=== PATIENT | male | born 1965 | race African-American/Black ===

== ENCOUNTER 2018-10-08 13:26 | Inpatient (IN) ==
[2018-10-08] MEDS ORDERED: LASIX IV ONE (14:25)
--- NOTE | 2018-10-08 14:33 | PROVIDER DOCUMENTATION ---
HPI-Cardiac General - General Chief Complaint: Edema Stated Complaint: EDEMA Time Seen by Provider: 10/08/18 14:13 Allergies/Adverse Reactions: Patient Allergies Allergy/AdvReac Type Severity Reaction Status Date / Time No Known Allergies Allergy Verified 10/08/18 14:39 Home Medications: Home Medication List Medication Instructions Recorded Confirmed Last Taken Type Carvedilol [Coreg] 12.5 mg PO Q12HR tablet 03/12/18 Unknown Rx Folic Acid 1 mg PO DAILY tablet 03/12/18 Unknown Rx Furosemide [Lasix] 40 mg PO DAILY tablet 03/12/18 Unknown Rx Losartan [Cozaar] 50 mg PO BID 30 Days #60 tab 03/12/18 Unknown Rx Magnesium Oxide [Mag-Ox] 400 mg PO BID 30 Days #60 tab 03/12/18 Unknown Rx Rivaroxaban [Xarelto] 20 mg PO WSUPPER tablet 03/12/18 Unknown Rx Spironolactone [Aldactone] 25 mg PO BID 30 Days #30 tab 03/12/18 Unknown Rx Thiamine [Vitamin B-1] 100 mg PO DAILY 30 Days #30 tab 03/12/18 Unknown Rx - History of Present Illness-Cardiac Nature of Presenting Problem: reports LE edema and umbilical nodules and pain for 2-3 wks now. stated that he was on 7 different medicine due to financial strain he did not continue his medication. associated with sob on exertion and at rest. denied cp. admit to drinking 1 alcohol this morning to ease his pain. but normally he drinks 4packs a day. still smoking 1/2 ppd. Review of Systems - Adult - REVIEW OF SYSTEMS - ADULT Constitutional: reports: no symptoms reported Eyes: reports: no symptoms reported Ears, Nose, Mouth & Throat: reports: no symptoms reported Cardiovascular: reports: no symptoms reported Respiratory: reports: no symptoms reported Gastrointestinal: reports: no symptoms reported Genitourinary: reports: no symptoms reported Musculoskeletal: reports: no symptoms reported Integumentary: reports: no symptoms reported Neurological: reports: no symptoms reported Psychiatric: reports: no symptoms reported Endocrine: reports: no symptoms reported Hematologic/Lymphatic: reports: no symptoms reported Allergic/Immunologic: reports: no symptoms reported All Other Systems: Reviewed and Negative Past History - Adult - PAST MEDICAL HISTORY-ADULT Review of Records: reports: Old Records Reviewed, Nursing Assessment Review, Medications Reviewed, Social history reviewed & non-contributory. Major Childhood Illnesses: reports: denies history Cardiovascular: reports: denies history Respiratory: reports: denies history Gastrointestinal: reports: denies history Obstetrical/Gynecological: reports: denies history Genitourinary: reports: denies history Musculoskeletal: reports: denies history Neurological: reports: denies history Endocrine/Immune: reports: denies history Other Conditions: reports: denies history - IMMUNIZATION STATUS Childhood Immunizations: See Nurse Assessment Flu Vaccine: See Nurse Assessment - FAMILY HISTORY Family History: reviewed, not pertinent - SOCIAL HISTORY Smoking: less than 1 pack/day Provider spent 3-5 mins advising pt. on dangers of tobacco.: Discussed manners to quit use, and f/u contacts for add'l counseling. Substance Use: alcohol (this morning) Alcohol Use Frequency: every day Living Situation: family Physical Exam-General - CONSTITUTIONAL General Appearance: appears well, mild distress - EYES Eyes: PERRL/EOMI, scleral icterus - HEAD, EARS, NOSE, MOUTH & THROAT HENMT: normocephalic/atraumatic, normal ENT inspection - NECK Neck: non-tender, full range of motion - RESPIRATORY Respiratory: chest non-tender, lungs clear, normal breath sounds - CARDIOVASCULAR Cardiovascular: normal peripheral pulses, other (edematous BLE and abd umbilical swelling.) - GASTROINTESTINAL (ABDOMEN) Abdominal Exam: non tender (but at the umbilical area mild tender on palpation), distended - MUSCULOSKELETAL Extremity: normal range of motion, pedal edema, swelling (pitting 2+) - SKIN Integumentary: normal color, warm/dry - NEUROLOGIC Neurologic: grossly normal - PSYCHIATRIC Psych/Mental Status: oriented x 3 Progress - PLAN OF CARE/RESULTS Progress/Plan/Lab Results: Vital Signs - 8 hr 10/08/18 13:40 10/08/18 14:18 10/08/18 14:19 Temperature 97.7 F Pulse Rate 92 H Respiratory Rate 18 Blood Pressure 179/124 174/133 O2 Sat by Pulse Oximetry 100 96 98 10/08/18 14:30 10/08/18 15:00 10/08/18 15:30 Temperature Pulse Rate Respiratory Rate Blood Pressure O2 Sat by Pulse Oximetry 98 98 97 Laboratory Results - last 24 hr 10/08/18 10/08/18 10/08/18 14:36 14:36 14:36 WBC 5.96 RBC 4.10 L Hgb 12.5 L Hct 34.9 L MCV 85.1 MCH 30.5 MCHC 35.8 RDW Std Deviation 13.2 Plt Count 111 L MPV 12.1 H Immature Gran % (Auto) 0.3 Neut % (Auto) 65.9 Lymph % (Auto) 25.0 Cochran % (Auto) 6.5 Eos % (Auto) 1.5 Baso % (Auto) 0.8 Immature Gran # (Auto) 0.02 Neut # (Auto) 3.92 Lymph # (Auto) 1.49 Cochran # (Auto) 0.39 Eos # (Auto) 0.09 Baso # (Auto) 0.05 PT INR PTT (Actin FS) Sodium 140 Potassium 4.5 Chloride 106 Carbon Dioxide 21 L Anion Gap 13 BUN 22 Creatinine 1.3 H Estimated GFR/1.73 m2 > 60 BUN/Creatinine Ratio 17 Glucose 90 Calculated Osmolality 282 Calcium 8.8 Total Bilirubin 2.09 H AST 53 H ALT 19 Alkaline Phosphatase 63 Creatine Kinase 117 Troponin T Nru-H-Hgvgedwlutl Pept 4773 H Total Protein 7.1 Albumin 3.5 Globulin 3.6 Albumin/Globulin Ratio 1.0 10/08/18 10/08/18 14:36 14:36 WBC RBC Hgb Hct MCV MCH MCHC RDW Std Deviation Plt Count MPV Immature Gran % (Auto) Neut % (Auto) Lymph % (Auto) Cochran % (Auto) Eos % (Auto) Baso % (Auto) Immature Gran # (Auto) Neut # (Auto) Lymph # (Auto) Cochran # (Auto) Eos # (Auto) Baso # (Auto) PT 18.2 H INR 1.39 PTT (Actin FS) 30.0 Sodium Potassium Chloride Carbon Dioxide Anion Gap BUN Creatinine Estimated GFR/1.73 m2 BUN/Creatinine Ratio Glucose Calculated Osmolality Calcium Total Bilirubin AST ALT Alkaline Phosphatase Creatine Kinase Troponin T 0.023 Ilx-T-Motydxoiqes Pept Total Protein Albumin Globulin Albumin/Globulin Ratio Orders Category Date Time Status Cardiac Monitoring DIRECTED Care 10/08/18 14:23 Active Oxygen Therapy- ED Nursing DIRECTED Care 10/08/18 14:23 Active Saline Loc NOW Care 10/08/18 14:23 Active CHEST-2 VIEWS [RAD] Stat Exams 10/08/18 14:[address] ABD/PELVIS W/IV CONT ONLY [CT] Stat Exams 10/08/18 14:28 Completed AMMONIA [CHEM] Stat Lab 10/08/18 16:31 Uncollected CBC WITH ELECTRONIC DIFF [HEME] Stat Lab 10/08/18 14:36 Completed CK PROFILE [SP CHEM] Stat Lab 10/08/18 14:36 Completed CMP [COMPREHENSIVE METABOLIC PANEL] [CHEM] Stat Lab 10/08/18 14:36 Completed PRO B-NATRIURETIC PEPTIDE Stat Lab 10/08/18 14:36 Completed PROTIME WITH INR [COAG] Stat Lab 10/08/18 14:36 Completed PTT [COAG] Stat Lab 10/08/18 14:36 Completed TROPONIN T Stat Lab 10/08/18 14:36 Completed Furosemide [Lasix] Med 10/08/18 14:25 Discontinued 60 mg IV NOW ONE CP/SOB/Palp >45 yrs of Age Stat Oth 10/08/18 14:23 Ordered EKG [EKG] Stat Ther 10/08/18 14:23 Ordered [facility] [address] [place] [address], [address], [place] [address] Department of Imaging Patient: ALEX GONZALEZ ADM Date: 10/08/18 MR#: [id number] : 1965 ADM Status: REG ER Age/Sex: 53/M Room/Bed: Loc: ED Ordering Physician: Venus Ball MD Family Physician: None,PCP Reason for Procedure: abd umbilical hernia, nodules ____ Signed EXAM: CT ABD/PELVIS W/IV CONT ONLY INDICATION: abd umbilical hernia, nodules TECHNIQUE: This exam was performed using automated exposure control, adjustment of mA or kV according to patient size, and/or use of iterative reconstruction technique. COMPARISON: None. FINDINGS: There is marked cardiomegaly. There is a trace right pleural effusion. The lung bases are clear, otherwise. There is a nonenhancing nodular density in the left ventricle near the apex of the heart that is best appreciated on the venous phase measuring 3.1 x 1.9 cm axially. Given its lack of enhancement, and may represent a blood clot in the ventricle. There is reflux of contrast into the hepatic veins indicating right heart failure. The contour of the liver is vaguely nodular suggesting cirrhosis. There is moderate ascites throughout the abdomen. There is diffuse mesenteric as well as extensive body wall edema indicating anasarca. The spleen is borderline prominent measuring up to 13.1 cm in axial length. There are a couple of calcified stones in the gallbladder lumen. The gallbladder wall is somewhat thickened. However, this is assumed to be due to the surrounding ascites. The adrenal glands and pancreas are unremarkable. There is an extrarenal pelvis on the left that appears somewhat dilated as compared to the right. The left ureter also appears somewhat dilated. No obstructing lesion is identified so this may be chronic. The urinary bladder is largely nondistended. The urinary bladder wall is thickened. This is largely due to incomplete distention. There is no evidence of bowel obstruction or focal bowel wall thickening. The GI tract is grossly unremarkable, otherwise. There are degenerative changes at both hips and throughout the spine. The bony structures are intact. IMPRESSION: 1.Marked cardiomegaly. 2.Nonenhancing nodular focus in the left ventricle near the apex of the heart that is nonspecific but may represent a blood clot in the ventricle given its lack of enhancement. 3.Contrast reflux into the hepatic veins indicating right heart failure. 4.Cirrhosis. 5.Moderate volume ascites and extensive mesenteric and body wall anasarca. 6.Other incidental/nonacute findings detailed above. Electronically signed by Alvarez Romero 10/08/2018 4:17 PM 10/08/18 1617 Interpreting Physician: Alvarez Romero MD Dictated Date/Time: 10/08/18 1600 cc: Venus Ball MD; None,PCP Result Diagrams: 10/08/18 14:36 10/08/18 14:36 - CONSULTS/PCP/HOSPITALIST Notification #1 *Consult/PCP/Hospitalist*: Katelyn HERRERA Time Discussed: 16:32 (cirrhosis with ascites, chf exac, joe. ) Consult Disposition: Admit Departure - Departure Date of Disposition Decision: 10/08/18 Time of Disposition Decision: 16:32 DIAGNOSIS: Peripheral edema, HTN (hypertension), Cirrhosis of liver with ascites Disposition: ADMITTED INPATIENT 09 Certified Medical Emergency: Emergent Condition: Stable Referrals and Follow-Ups: None,PCP [Primary Care Provider] - - Critical Care Note This patient required my direct & personal management of CC.: No Attestation - Physician/ LUTHER Attestation The physician spent face to face time with patient:: Yes Advanced Practice Provider documentation review:: Supervising physician onsite and consulted in the evaluation and care of this patient. The physician did have a face to face encounter with the patient.
[2018-10-08 14:48] LABS: BASO# 0.05 X1000 (0.0-0.2); BASO% 0.8 % (0.0-0.8); EOS# 0.09 X1000 (0.0-0.7); EOS% 1.5 % (0.0-10.0); HEMATOCRIT 34.9 % (42.0-52.0); HEMOGLOBIN 12.5 g/dL (14.0-18.0); IMM GRAN# 0.02 X1000 (0.0-0.04); IMM GRAN% 0.3 % (0.0-0.5); LYMPH# 1.49 X1000 (1.2-3.4); MCH 30.5 PG (27-31); MCHC 35.8 g/dL (33-37); MCV 85.1 FL (81-99); MONO# 0.39 X1000 (0.11-0.59); MONO% 6.5 % (1.7-9.3); MPV 12.1 FL (7.4-10.4); NEUT# 3.92 X1000 (1.4-6.5); NEUT% 65.9 % (42.2-75.2); PLT 111 X1000 (130-400); RDW 13.2 % (11.5-14.5); WBC 5.96 X1000 (4.8-10.8)
[2018-10-08 14:57] LABS: INR 1.39; PROTIME 18.2 Seconds (11.0-16.0)
[2018-10-08 15:11] LABS: AGAP 13; ALBUMIN 3.5 g/dL (3.5-5.0); ALKALINE PHOSPHATASE 63 U/L (32-122); BUN 22 mg/dL (8-22); CALCIUM 8.8 mg/dL (8.8-10.2); CHLORIDE 106 mmol/L (98-107); CK PROFILE 117 U/L (24-204); COSMO 282; CREATININE 1.3 mg/dL (0.7-1.2); ESTIMATED GFR > 60; GLUCOSE 90 mg/dL (70-104); GOT 53 U/L (10-34); GPT 19 U/L (10-44); POTASSIUM 4.5 mmol/L (3.5-5.1); SODIUM 140 mmol/L (136-145); TCO2 21 mmol/L (25-35); TOTAL BILIRUBIN 2.09 mg/dL (0.20-1.00); TOTAL PROTEIN 7.1 g/dL (6.3-8.3)
--- NOTE | 2018-10-08 15:27 | Diag Imaging Result Doc PS360 ---
EXAM: CHEST-2 VIEWS - 10/08/2018 HISTORY: sob, chf TECHNIQUE: Chest two views COMPARISON: 03/10/2018 FINDINGS: There is stable cardiomegaly. There is stable tortuosity of the thoracic aorta. Inspiration is mildly shallow. The lungs appear clear. There is no vascular congestion, pleural effusion, or pneumothorax identified. IMPRESSION: Stable mild cardiomegaly. Mildly shallow inspiration. No other evidence of acute disease. Electronically signed by Rito Addison 10/08/2018 3:25 PM
--- NOTE | 2018-10-08 16:20 | Diag Imaging Result Doc PS360 ---
EXAM: CT ABD/PELVIS W/IV CONT ONLY INDICATION: abd umbilical hernia, nodules TECHNIQUE: This exam was performed using automated exposure control, adjustment of mA or kV according to patient size, and/or use of iterative reconstruction technique. COMPARISON: None. FINDINGS: There is marked cardiomegaly. There is a trace right pleural effusion. The lung bases are clear, otherwise. There is a nonenhancing nodular density in the left ventricle near the apex of the heart that is best appreciated on the venous phase measuring 3.1 x 1.9 cm axially. Given its lack of enhancement, and may represent a blood clot in the ventricle. There is reflux of contrast into the hepatic veins indicating right heart failure. The contour of the liver is vaguely nodular suggesting cirrhosis. There is moderate ascites throughout the abdomen. There is diffuse mesenteric as well as extensive body wall edema indicating anasarca. The spleen is borderline prominent measuring up to 13.1 cm in axial length. There are a couple of calcified stones in the gallbladder lumen. The gallbladder wall is somewhat thickened. However, this is assumed to be due to the surrounding ascites. The adrenal glands and pancreas are unremarkable. There is an extrarenal pelvis on the left that appears somewhat dilated as compared to the right. The left ureter also appears somewhat dilated. No obstructing lesion is identified so this may be chronic. The urinary bladder is largely nondistended. The urinary bladder wall is thickened. This is largely due to incomplete distention. There is no evidence of bowel obstruction or focal bowel wall thickening. The GI tract is grossly unremarkable, otherwise. There are degenerative changes at both hips and throughout the spine. The bony structures are intact. IMPRESSION: 1.Marked cardiomegaly. 2.Nonenhancing nodular focus in the left ventricle near the apex of the heart that is nonspecific but may represent a blood clot in the ventricle given its lack of enhancement. 3.Contrast reflux into the hepatic veins indicating right heart failure. 4.Cirrhosis. 5.Moderate volume ascites and extensive mesenteric and body wall anasarca. 6.Other incidental/nonacute findings detailed above. Electronically signed by Alvarez Romero 10/08/2018 4:17 PM
[2018-10-08] MEDS ORDERED: ATIVAN IV PRN (17:20)
[2018-10-08] MEDS ORDERED: ZOFRAN IV PRN (17:20)
[2018-10-08] MEDS ORDERED: APRESOLINE IV PRN (17:20)
--- NOTE | 2018-10-08 17:59 | HISTORY AND PHYSICAL ---
HISTORY OF PRESENT ILLNESS: Mr. Acharya has no primary care physician, but he is a 52-year-old. We had him here in February. He claimed to have no past medical history at that time when he came in. He was in [place], diagnosed with right lower extremity DVT and hypertension. Sent home on Xarelto, lisinopril, given cefdinir, unknown type, for infection for 10 days, which he completed. States that he has been taking medications as prescribed, however, last month around 10 pound weight gain. This is on previous admission. So we put him in the hospital. ProBNP was 10,000. He was worked up with Cardiology, found to have cirrhosis of the liver with ascites, bilateral lower extremity edema, hypercoagulopathy, his INR was 4, right lower extremity DVT, has been taking Xarelto, and cardiomegaly. He had a workup. His myocardial perfusion scan on the 10 of March, severe reduction in left ventricular ejection fraction, about 35%, so he was put on some medication for diuresis. Dr. Wu was following, Dr. Guerrero, had a dilated nonischemic cardiomyopathy. PAST MEDICAL HISTORY: 1. Diagnosed with right lower extremity DVT. 2. Hypertension. 3. Alcohol use, used to drink about a 6 pack a day or more. 4. Tobacco use and abuse. PAST SURGICAL HISTORY: He had a spider bite that I think would have been incised in the past. SOCIAL HISTORY: The patient lives in [place]. 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 He is single. Smoker. Smokes about a half pack a day. Six pack per day of beer, possibly more. FAMILY HISTORY: Mother with hypertension. Denies any diabetes. ALLERGIES: No known drug allergies. MEDICATIONS: The patient was on Xarelto and lisinopril. REVIEW OF SYSTEMS: His main problem is he just feels like he has got more swelling in his side and his legs, and he is more short of breath, more dyspnea. He is able to sleep in his bed. He is able to lie down, but feels more short of breath with any exertion. Denies chest pain. Denies fever or chills. His left shoulder has been giving him some discomfort. PHYSICAL EXAMINATION: VITAL SIGNS: Temperature 97.7 degrees, pulse 92, respirations 18, blood pressure 174/133. HEENT: Pupils are equal and round. LUNGS: Clear in all lung buckley. CVP is about 8 cm from left atrium. PULSES: Carotid, radial, and femoral pulses 2+ and symmetrical. ABDOMEN: Soft. CARDIOVASCULAR: Regular rhythm and rate without murmur or S3. Blood pressure 174/133, respiration rate 18, pulse rate 92, height 5 feet 10 inches. LABORATORY DATA: White count 5960, hematocrit 34, platelet count 111,000. Sodium 140, potassium 4.5, chloride 106, BUN 22, creatinine 1.3, glucose 90, AST 53, ALT 19, CK is 113. Albumin is 3.5. Pro-time is 18.2. Abdominal and pelvic CT: Marked cardiomegaly, nonenhancing nodular focus in the left ventricle in the apex of the heart that is nonspecific but may represent blood clot in the ventricle given the lack of enhancement, contrast reflux into the hepatic veins indicating right heart failure, cirrhosis, moderate volume ascites, extensive mesenteric and body wall anasarca. On exam, he has 2+ pitting edema from ankle to mid horowitz, and he appears to have some swelling anasarca up in the thighs and legs. ASSESSMENT AND PLAN: 1. Congestive heart failure. He has nonischemic global hypokinesis with cardiomyopathy. He has some right-sided failure as well with anasarca predominantly right-sided. His chest x-ray shows cardiomegaly, mildly shallow inspiration, but do not see a lot of pulmonary venous hypertension on that, but the abdominal pelvic CT suggests anasarca and swelling and signs of right heart failure. So we will try and diurese him. We need to get his afterload down. His blood pressure is high. He is supposed to be on Coreg 12.5 mg twice a day. We will give him Lasix IV. I am going to have him take 80 mg of Lasix IV and will do that q.12h for now. He will be on Cozaar 50 mg b.i.d. He will take Aldactone 25 mg b.i.d. We will try and time the Aldactone, so it is 30 minutes after his Lasix. He will take that p.o. I think we need to look at his left ventricle and right ventricle again with an echocardiogram. We need to check his thyroid and B12 and folate. We will follow his proBNP, check another one tomorrow. Follow his electrolytes with magnesium and his basic metabolic profile. 2. He has had a diagnosis of right lower extremity deep venous thrombosis. I think we are going to have to try follow-up and get noninvasive venous studies of both legs and just see where we are with that. 3. Hypertension. We need to get his afterload down. 4. Alcohol use. I am not sure where we stand on that, whether he is drinking again or not, but will encourage him to stop drinking. We will give him a nicotine patch if he requests one. I think for blood pressures right now, we will put him on his home medications and then give him 10 mg of Apresoline IV q.4 hours p.r.n. systolic blood pressure greater than 180 or diastolic greater than 100 q.4 hours, and we will check serial cardiac enzymes and look at his troponin and CPK. cc: Harjit Cuellar MD
[2018-10-08] MEDS: ALDACTONE PO SCH (20:23)
[2018-10-08] MEDS: COREG PO SCH (20:23)
[2018-10-08] MEDS: COZAAR PO SCH (20:23)
[2018-10-08] MEDS: MAG-OX PO SCH (20:23)
[2018-10-08] MEDS: ULTRAM PO PRN (20:49)
--- NOTE | 2018-10-08 23:39 | ED EKG INTERP ---
This chart was entered by Beverley Romero Scribe, acting as scribe for Venus Ball MD. EKG Interpretation - EKG Time of EKG reading by physician:: 15:37 EKG Read and Signed by:: Venus Ball EKG Interpretation (*Must complete 3 of following elements*): Abnormal Rate: 90 (Anterior infarct, age undetermined ) Rhythm: SR w/SA w/occ premature ventricular complexes Wenden: left MI Interval: normal Comments: Inferior infarct, age undetermined Attestation - Physician/ LUTHER Attestation The physician spent face to face time with patient:: Yes Advanced Practice Provider documentation review:: Supervising physician onsite and consulted in the evaluation and care of this patient. The physician did have a face to face encounter with the patient. This chart was documented by the indicated scribe, (Beverley Romero Scribe) and accurately reflects the services I performed and decisions made by me, Venus Ball MD, as attested by the provider's signature.
[2018-10-09 00:31] LABS: CK INDEX 0.9 (0.0-2.5); CK-MB 20.84 ng/mL (0.0-5.0)
--- NOTE | 2018-10-09 07:04 | Extremity Venous Study ---
PROCEDURE NAME: Venous U/S Bilateral Legs - 10/08/2018 REFERRING PHYSICIAN: Dr. Ball in the ED. FINDINGS: The patient complains of the lower extremity edema, has a history of a previous right popliteal DVT. Bilateral lower extremity venous images accomplished. The common femoral, superficial femoral, deep femoral, popliteal, posterior tibial, peroneal, and greater saphenous veins are imaged bilaterally. Doppler is used to evaluate the veins for spontaneity, phasicity, respiratory excursion, distal augmentation. All veins are compressible. No intraluminal clot is seen. Multiple lymph nodes are noted in both groins. INTERPRETATION: No evidence of deep or superficial venous thrombosis in the right lower extremity. The previously noted right popliteal venous thrombosis has resolved. There are lymph nodes noted in both groins bilaterally. cc: MD Mary Lawler CRNP
[2018-10-09 07:51] LABS: BASO# 0.04 X1000 (0.0-0.2); BASO% 0.8 % (0.0-0.8); EOS# 0.14 X1000 (0.0-0.7); HEMATOCRIT 33.6 % (42.0-52.0); HEMOGLOBIN 12.1 g/dL (14.0-18.0); LYMPH# 1.38 X1000 (1.2-3.4); LYMPH% 29.3 % (20.5-51.1); MCH 30.7 PG (27-31); MCV 85.3 FL (81-99); MONO# 0.28 X1000 (0.11-0.59); MONO% 5.9 % (1.7-9.3); MPV 12.5 FL (7.4-10.4); NEUT# 2.87 X1000 (1.4-6.5); PLT 100 X1000 (130-400); RBC 3.94 XMIL (4.7-6.1); RDW 13.4 % (11.5-14.5); WBC 4.71 X1000 (4.8-10.8)
[2018-10-09 08:03] LABS: INR 1.43; PROTIME 18.6 Seconds (11.0-16.0)
[2018-10-09 08:04] LABS: PTT 32.2 Seconds (22.3-41.8)
--- NOTE | 2018-10-09 08:07 | Diag Imaging Result Doc PS360 ---
EXAM: CHEST-2 VIEWS INDICATION: sob TECHNIQUE: 2 views COMPARISON: 10/08/2018 FINDINGS: The lungs are grossly clear. There is no discrete pleural fluid collection or pneumothorax. There is stable cardiomegaly. IMPRESSION: Stable cardiomegaly. No evidence of acute pathology by plain radiograph. Electronically signed by Alvarez Romero 10/09/2018 8:05 AM
[2018-10-09 08:20] LABS: AGAP 13; ALB/GLOB RATIO 0.9; ALBUMIN 3.2 g/dL (3.5-5.0); ALKALINE PHOSPHATASE 58 U/L (32-122); BUN 26 mg/dL (8-22); CALCIUM 8.6 mg/dL (8.8-10.2); CHLORIDE 106 mmol/L (98-107); COSMO 287; CREATININE 1.4 mg/dL (0.7-1.2); ESTIMATED GFR > 60; GLUCOSE 110 mg/dL (70-104); GOT 42 U/L (10-34); GPT 17 U/L (10-44); MAGNESIUM 1.5 mg/dL (1.5-2.7); POTASSIUM 4.1 mmol/L (3.5-5.1); SODIUM 141 mmol/L (136-145); TCO2 22 mmol/L (25-35); TOTAL BILIRUBIN 1.92 mg/dL (0.20-1.00); TOTAL PROTEIN 6.6 g/dL (6.3-8.3)
[2018-10-09] MEDS: MAG-OX PO SCH ×2 (08:54→21:31)
[2018-10-09] MEDS: FOLIC ACID PO SCH (08:54)
[2018-10-09] MEDS: VITAMIN B-1 PO SCH (08:55)
[2018-10-09] MEDS: COZAAR PO SCH ×2 (08:55→21:31)
[2018-10-09] MEDS: COREG PO SCH ×2 (08:55→21:31)
[2018-10-09] MEDS: LASIX IV SCH ×2 (08:55→21:31)
[2018-10-09] MEDS: ALDACTONE PO SCH ×2 (08:55→21:31)
--- NOTE | 2018-10-09 12:21 | PROGRESS NOTE ---
DATE: 10/09/2018 SUBJECTIVE: Mr. Acharya is feeling a little better. Feels like the tightness around his side is little better. No chest pain. His left shoulder has been a little uncomfortable because he cannot really get a comfortable position to sleep. OBJECTIVE: Vital signs: His temperature is 97.4 degrees, pulse 67, respirations 18, blood pressure 135/107. HEENT: Pupils are equal and round. Lungs: Clear in all lung buckley. Cardiovascular: Regular rhythm and rate without murmur or S3. Abdomen: Soft. Skin: Warm and dry. Extremities: He does have still trace edema, but it has gone down in his lower extremities and his thighs as well so, he appears to be diuresing pretty well. IMAGING: Chest x-ray: Stable cardiomegaly, no evidence of acute pathology. Extremity venous study: No evidence of deep or superficial venous thrombosis in the right lower extremity. Previous noted right popliteal venous thrombosis has resolved. There are lymph nodes in both groins which were nonspecific. LABORATORY DATA: White count 4710, hematocrit 33, platelet count 100,000. Sodium 141, potassium 4.1, chloride 106, BUN 26, creatinine 1.4, calcium 8.6. AST is 42, ALT is 17. Creatinine has bumped up just a little bit. His urine output appears to be 1500, close to 2000 mL. ASSESSMENT AND PLAN: 1. Congestive heart failure, global hypokinesis, cardiomyopathy. He has had some right-sided failure before, predominantly right-sided this time as well. Continue to diurese. Not exactly sure what his home medications are supposed to be but we thought they were Coreg and we are giving him Lasix 80 mg IV q.12, Coreg 12.5 mg q.12 hours, Cozaar 50 mg b.i.d., spironolactone 25 mg b.i.d. Electrolytes look okay. Continue diuresis. 2. Diagnosis of right lower extremity deep venous thrombosis. It looks like that has cleared. 3. Hypertension. Blood pressures seem to be doing better except the diastolic is still running high, so we will adjust medications accordingly. cc: Harjit Cuellar MD
[2018-10-09] MEDS: APRESOLINE PO SCH ×3 (12:58→21:31)
[2018-10-09] MEDS: XARELTO PO SCH (17:14)
[2018-10-09] MEDS: ULTRAM PO PRN (21:29)
--- NOTE | 2018-10-10 09:32 | ECHO REPORT ---
ORDER DATE: 10/08/2018 MEASUREMENTS: Left ventricular end-diastolic diameter 6.3, septal thickness 1.1, posterior wall thickness 1.1, aortic root 3.6, left atrium 6.0. SUMMARY: 1. Adequate quality study. 2. Intravenous echocontrast agent utilized to enhance endocardial definition. 3. Aortic valve is trileaflet and opens normally on 2-dimensional images. Peak gradient across the aortic valve is less than 10 mmHg. There is mild aortic regurgitation. Mitral, tricuspid, and pulmonic valves are without evidence of structural abnormality, with mild mitral regurgitation, severe tricuspid regurgitation, and [id number] pulmonic insufficiency. The estimated systolic PA pressure by Doppler is 25 mmHg. The aortic root is normal in size. 4. Moderate left ventricular enlargement with normal wall thickness demonstrated. The estimated left ventricular ejection fraction is approximately 20% in the setting of severe global hypokinesis. Echodensity of left ventricular apex noted, consistent with apical thrombus. The left atrium is severely enlarged. Right ventricle is moderately enlarged with mildly reduced right ventricular systolic function. Diastolic septal flattening noted, suggesting right ventricular volume overload. 5. No pericardial effusion. 6. Appearance of inferior vena cava suggests elevated central venous pressure. cc: MD Mary Zhang CRNP
[2018-10-10 11:07] LABS: HEPATITIS PROFILE ACUTE SEE COMMENTS
[2018-10-10] MEDS: MAG-OX PO SCH ×2 (11:26→21:26)
[2018-10-10] MEDS: COZAAR PO SCH ×2 (11:26→21:26)
[2018-10-10] MEDS: LASIX IV SCH ×2 (11:26→21:26)
[2018-10-10] MEDS: ALDACTONE PO SCH ×2 (11:26→21:26)
[2018-10-10] MEDS: FOLIC ACID PO SCH (11:27)
[2018-10-10] MEDS: APRESOLINE PO SCH ×3 (11:27→21:26)
[2018-10-10] MEDS: VITAMIN B-1 PO SCH (11:27)
[2018-10-10] MEDS: COREG PO SCH ×2 (11:27→21:26)
[2018-10-10] MEDS: XARELTO PO SCH (16:28)
--- NOTE | 2018-10-10 16:32 | PROGRESS NOTE ---
DATE: 10/10/2018 SUBJECTIVE: Mr. Acharya does feel like he is breathing a little better. Feels like swelling is going down. I have explained that he has biventricular failure, concerned that he has a blood clot in the ventricle. He is making some progress with diuresis. We are going to try and control his afterload. OBJECTIVE: Vital Signs: Temperature 97.6 degrees, pulse 66, respirations 18, blood pressure 111/86. HEENT: Pupils are equal and round. CVP is less than 8 cm. Lungs: Clear in all lung buckley. Cardiovascular: Regular rhythm and rate. Carotid, radial, femoral pulse 1+ and symmetrical. He has 1+ pitting edema ankle to mid horowitz and some edema in the upper thighs and his abdomen. ASSESSMENT AND PLAN: Biventricular systolic dysfunction, severe cardiomyopathy. I think we are making some progress with diuresis. Blood pressure has come down. I added Apresoline. Echo suggests he may have a mural thrombus. He is already on Xarelto 20 mg a day. MEDICATIONS: Coreg 12.5 mg twice a day, folic acid 1 mg a day, Lasix 80 mg IV q.12 h., Apresoline 10 mg q.4 h. p.r.n., hydralazine 50 mg 3 times a day, Ativan 1 to 2 mg IV q.4 h., Cozaar 50 mg b.i.d., magnesium oxide 400 mg b.i.d., Xarelto 20 mg a day, spironolactone 25 mg b.i.d., vitamin B1 100 mg daily, Ultram 50 mg q.6 hours. We will check his electrolytes and CBC again tomorrow. cc: Harjit Cuellar MD
[2018-10-10] MEDS: ULTRAM PO PRN (21:35)
--- NOTE | 2018-10-11 08:03 | EKG Report ---
Test Performed on : 10/09/2018 06:08:43 AM Test Reason : chest pain Blood Pressure : / mmHG Vent. Rate : 069 BPM Atrial Rate : 069 BPM P-R Int : 200 ms QRS Dur : 112 ms QT Int : 502 ms P-R-T Axes : 046 198 082 degrees QTc Int : 537 ms Normal sinus rhythm. Right bundle branch block Inferior infarct (cited on or before 03-MAR-2018) Anterolateral infarct (cited on or before 03-MAR-2018) Abnormal ECG When compared with ECG of 08-OCT-2018 15:37, (Unconfirmed) premature ventricular complexes. are no longer present Right bundle branch block is now present Confirmed by Emiliano LUIS, Babatunde ([id number]) on 10/11/2018 9:13:58 AM
[2018-10-11 08:25] LABS: CREATININE 1.8 mg/dL (0.7-1.2); MAGNESIUM 1.3 mg/dL (1.5-2.7); POTASSIUM 3.7 mmol/L (3.5-5.1)
--- NOTE | 2018-10-11 08:47 | Diag Imaging Result Doc PS360 ---
EXAM: CHEST-2 VIEWS HISTORY: chf TECHNIQUE: Chest two views COMPARISON: 10/09/2018 FINDINGS: Poor inspiratory effort. The heart is enlarged. No pulmonary edema. No pleural effusions. No pneumonia. IMPRESSION: Cardiomegaly, but no other evidence of congestive failure. Electronically signed by Cachorro Ríos 10/11/2018 8:45 AM
--- NOTE | 2018-10-11 08:52 | EKG Report ---
Test Performed on : 10/08/2018 3:37:48 PM Test Reason : sob Blood Pressure : / mmHG Vent. Rate : 090 BPM Atrial Rate : 090 BPM P-R Int : 180 ms QRS Dur : 100 ms QT Int : 392 ms P-R-T Axes : 042 -84 063 degrees QTc Int : 479 ms Sinus rhythm. with sinus arrhythmia. with occasional premature ventricular complexes. Left axis deviation Inferior infarct (cited on or before 03-MAR-2018) Anterior infarct (cited on or before 03-MAR-2018) Abnormal ECG When compared with ECG of 06-MAR-2018 06:17, premature ventricular complexes. are now present Questionable change in initial forces of Lateral leads Nonspecific T wave abnormality no longer evident in Inferior leads Nonspecific T wave abnormality no longer evident in Anterior leads Unconfirmed Result
[2018-10-11] MEDS: LASIX IV SCH ×2 (09:58→20:28)
[2018-10-11] MEDS: MAG-OX PO SCH ×2 (09:59→20:04)
[2018-10-11] MEDS: ULTRAM PO PRN (09:59)
[2018-10-11] MEDS: FOLIC ACID PO SCH (09:59)
[2018-10-11] MEDS: ALDACTONE PO SCH ×2 (09:59→20:04)
[2018-10-11] MEDS: COZAAR PO SCH ×2 (09:59→20:04)
[2018-10-11] MEDS: COREG PO SCH ×2 (09:59→20:04)
[2018-10-11] MEDS: VITAMIN B-1 PO SCH (09:59)
[2018-10-11] MEDS: APRESOLINE PO SCH ×3 (09:59→20:04)
--- NOTE | 2018-10-11 16:54 | PROGRESS NOTE ---
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 Feels like his breathing is a little better. Every day seems to be a little better. He says he is not where he needs to be yet, though. OBJECTIVE: Temperature 97.3 degrees, pulse 62, respirations 18, blood pressure 108/77. Pupils are equal and round. Lungs are clear in all lung buckley, anterior and posterior. Neck veins appear to be about 8 cm water pressure from angle of Guille. Abdomen: Soft. Positive bowel sounds. He has trace pitting edema from ankle to mid horowitz. Urinary output: A little over 2 L. DIAGNOSTIC STUDIES: Chest x-ray from this morning: Cardiomegaly with no other evidence of congestive heart failure. ASSESSMENT AND PLAN: Biventricular systolic dysfunction, severe cardiomyopathy, and questionable thrombus in the ventricle. He is already on Xarelto. Continue to diurese. I think his afterload is better controlled. Blood pressure is down. Seems to be diuresing pretty well. Cardiology is following. He had noninvasive venous studies which showed no evidence of superficial or deep venous thrombosis, and abdominal and pelvic CT just marked cardiomegaly. There is a focus in the left ventricle near the apex of the heart, which is nonspecific. He had an echocardiogram done on 10/08/2018: Moderate left ventricular enlargement, ejection fraction estimated about 20% with global hypokinesis. Echodensity of the left ventricle apex noted consistent with apical thrombus. The left atrium is severely enlarged. Right ventricle is moderately enlarged with mildly reduced right ventricular systolic function. There is diastolic septal flattening noted, suggestive of right ventricular volume overload, and he has predominantly has right-sided symptoms. Continue diuresis. Kidney function: Creatinine 1.8 which has gone up a little bit so I will cut down the Lasix to 40 mg IV q.12 h. He is already on spironolactone 25 mg twice a day and hydralazine 50 mg p.o. 3 times a day and Coreg 12.5 q.12 h. Continue the Xarelto. I suspect mural thrombus. cc: Harjit Cuellar MD
[2018-10-11] MEDS: XARELTO PO SCH (17:22)
[2018-10-12 07:09] LABS: HEMATOCRIT 34.2 % (42.0-52.0); HEMOGLOBIN 12.1 g/dL (14.0-18.0); MCH 30.9 PG (27-31); MCHC 35.4 g/dL (33-37); MCV 87.2 FL (81-99); MPV 12.1 FL (7.4-10.4); RBC 3.92 XMIL (4.7-6.1); RDW 13.4 % (11.5-14.5); WBC 4.76 X1000 (4.8-10.8)
[2018-10-12 07:53] LABS: CALCIUM 8.6 mg/dL (8.8-10.2); CREATININE 1.7 mg/dL (0.7-1.2); POTASSIUM 3.6 mmol/L (3.5-5.1)
--- NOTE | 2018-10-12 08:02 | Diag Imaging Result Doc PS360 ---
CHEST-PORTABLE - 10/12/2018 INDICATION: pulmonary edema COMPARISON: 10/11/2018 FINDINGS: Stable significant cardiomegaly. Pulmonary vascularity is normal. No infiltrates or edema. IMPRESSION: Cardiomegaly. Electronically signed by Zachery Fisher 10/12/2018 8:00 AM
[2018-10-12] MEDS: COREG PO SCH (08:31)
[2018-10-12] MEDS: FOLIC ACID PO SCH (08:31)
[2018-10-12] MEDS: VITAMIN B-1 PO SCH (08:31)
[2018-10-12] MEDS: ALDACTONE PO SCH (08:31)
[2018-10-12] MEDS: MAG-OX PO SCH (08:31)
[2018-10-12] MEDS: APRESOLINE PO SCH ×2 (08:31→16:23)
[2018-10-12] MEDS: COZAAR PO SCH (08:31)
[2018-10-12] MEDS: LASIX IV SCH (08:31)
[2018-10-12 15:23] VITALS: BP 121/89
[2018-10-12] MEDS: XARELTO PO SCH (16:24)
--- NOTE | 2018-10-14 19:27 | DISCHARGE SUMMARY ---
ADMISSION DATE: 10/08/2018 DISCHARGE DATE: 10/12/2018 FINAL DISCHARGE DIAGNOSES: 1. Acute on chronic systolic congestive heart failure exacerbation. 2. Severe cardiomyopathy. 3. Hypertension. 4. History of right popliteal venous thrombosis. 5. Apical thrombus 6. Liver cirrhosis IMAGING: CT of the abdomen and pelvis performed on 10/08/2018 that revealed marked cardiomegaly. Nonenhancing nodular focus in the left ventricle near the apex of the heart. Liver cirrhosis. Moderate volume ascites. HOSPITAL COURSE: Mr. Acharya is a 53-year-old male with a history of severe cardiomyopathy, chronic systolic CHF and chronic diastolic CHF, who presented to the ER with a chief complaint of lower extremity swelling and abdominal distention. The patient was noted to be in a CHF exacerbation and was started on IV diuretic therapy. The patient had an echocardiogram done that revealed an ejection fraction of 20% as well as apical thrombus. The patient responded well to diuretic therapy. The patient was maintained on his Xarelto for anticoagulation. The patient did not require supplemental oxygen, and his oxygen saturations stayed in the 99% to 100% range throughout the hospitalization. Also, the patient's peripheral edema improved with the diuretic therapy. The patient continued to improve clinically and was ultimately cleared for discharge. The patient was advised to follow up with Dr. Hamm upon discharge from the hospital within 1 week. DISCHARGE MEDICATIONS: 1. Lasix 60 mg p.o. daily. 2. Hydralazine 50 mg p.o. 3 times a day. 3. Coreg 12.5 mg oral every 12 hours. 4. Folic acid 1 mg p.o. daily. 5. Cozaar 50 mg p.o. twice a day. 6. Xarelto 20 mg p.o. daily. 7. Aldactone 25 mg oral twice a day. 8. Thiamin 100 mg p.o. daily. DISCHARGE DIET: Low-sodium, low-cholesterol diet. ACTIVITY: As tolerated. FOLLOWUP INSTRUCTIONS: The patient will need to follow up with Dr. Hamm within 1 week. cc: Radha Ellison MD MTDD
== END 2018-10-12 18:23 | disposition home or self-care (01) | DRG 292 ==
LOC: ED 13:26 → SUATTDRO 17:44 → 3N 17:44
PROVIDERS: ATTEND Internal Medicine
CPT/HCPCS: 71010; 71020; 71045; 71046; 74177; 80048; 80053; 80074; 82140; 82550; 82553; 83735; 83880; 84443; 84484; 85025; 85027; 85610; 85730; 93005; 93010; 93306; 93970; 94761; 96374; 99285; A9270; C8929; J1940; Q9957; Q9967

== ENCOUNTER 2018-11-15 14:46 | Inpatient (IN) ==
[2018-11-15] MEDS ORDERED: NITROGLYCERIN TOP ONE (15:17)
[2018-11-15] MEDS ORDERED: LASIX IV ONE (15:17)
--- NOTE | 2018-11-15 15:29 | Diag Imaging Result Doc PS360 ---
EXAM: CHEST-2 VIEWS 11/15/2018 HISTORY: fluid overload TECHNIQUE: PA and lateral chest COMMENT: There is cardiomegaly. The lungs are clear and essentially unchanged since 10/12/2018. IMPRESSION: Cardiomegaly. Electronically signed by Avi Orozco 11/15/2018 3:26 PM
[2018-11-15 15:58] LABS: BASO# 0.04 X1000 (0.0-0.2); BASO% 0.6 % (0.0-0.8); EOS# 0.09 X1000 (0.0-0.7); EOS% 1.4 % (0.0-10.0); HEMOGLOBIN 12.9 g/dL (14.0-18.0); LYMPH# 1.79 X1000 (1.2-3.4); LYMPH% 27.6 % (20.5-51.1); MCH 30.1 PG (27-31); MCHC 36.9 g/dL (33-37); MCV 81.8 FL (81-99); MONO# 0.26 X1000 (0.11-0.59); NEUT% 66.4 % (42.2-75.2); PLT 116 X1000 (130-400); RBC 4.28 XMIL (4.7-6.1); RDW 14.5 % (11.5-14.5); WBC 6.48 X1000 (4.8-10.8)
[2018-11-15 16:13] LABS: AGAP 8; ALBUMIN 3.6 g/dL (3.5-5.0); ALKALINE PHOSPHATASE 71 U/L (32-122); BUN 13 mg/dL (8-22); CALCIUM 8.9 mg/dL (8.8-10.2); CHLORIDE 104 mmol/L (98-107); COSMO 276; CREATININE 1.1 mg/dL (0.7-1.2); ESTIMATED GFR > 60; GLUCOSE 67 mg/dL (70-104); GOT 41 U/L (10-34); GPT 14 U/L (10-44); POTASSIUM 4.1 mmol/L (3.5-5.1); SODIUM 139 mmol/L (136-145); TCO2 27 mmol/L (25-35); TOTAL BILIRUBIN 2.08 mg/dL (0.20-1.00); TOTAL PROTEIN 7.3 g/dL (6.3-8.3)
--- NOTE | 2018-11-15 16:56 | PROVIDER DOCUMENTATION ---
This chart was entered by Jennifer Whitfield Scribe, acting as scribe for Jigna Carpenter MD. HPI-General Adult - General Chief Complaint: Edema Stated Complaint: FLUID BUILD UP Time Seen by Provider: 11/15/18 15:00 Source: patient Allergies/Adverse Reactions: Patient Allergies Allergy/AdvReac Type Severity Reaction Status Date / Time No Known Allergies Allergy Verified 10/08/18 14:39 Home Medications: Home Medication List Medication Instructions Recorded Confirmed Last Taken Type Carvedilol [Coreg] 12.5 mg PO Q12HR tablet 03/12/18 Unknown Rx Folic Acid 1 mg PO DAILY tablet 03/12/18 Unknown Rx Losartan [Cozaar] 50 mg PO BID 30 Days #60 tab 03/12/18 Unknown Rx Magnesium Oxide [Mag-Ox] 400 mg PO BID 30 Days #60 tab 03/12/18 Unknown Rx Rivaroxaban [Xarelto] 20 mg PO WSUPPER tablet 03/12/18 Unknown Rx Spironolactone [Aldactone] 25 mg PO BID 30 Days #30 tab 03/12/18 Unknown Rx Thiamine [Vitamin B-1] 100 mg PO DAILY 30 Days #30 tab 03/12/18 Unknown Rx Furosemide [Lasix] 60 mg PO DAILY #30 tab 10/12/18 Unknown Rx Hydralazine [Apresoline] 50 mg PO 0900,1500,2100 #90 tab 10/12/18 Unknown Rx - History of Present Illness -Gen Adult Nature of Presenting Problems: Patient is a 53 year old male who presents with swelling to bilateral legs, orthopnea, and dyspnea on exertion. Patient states history of CHF and states he has not been taking his medications due to not having the money to fill them. Denies chest pain. Patient states he has not been watching his fluid or salt intake. Location of Pain/Injury: reports: none Pain Radiation: reports: no radiation Quality of Pain: reports: none Severity: reports: mild Onset/Duration: reports: gradual Timing: reports: still present, getting worse Context/Activities at Onset: reports: light activity Modifying Factors: improves with: nothing Associated Symptoms: reports: other (swelling to bilateral legs, orthopnea, and dyspnea on exertion) Similar Symptoms Previously?: Yes Recently seen or treated by another doctor?: Yes Review of Systems - Adult - REVIEW OF SYSTEMS - ADULT Constitutional: reports: no symptoms reported Eyes: reports: no symptoms reported Cardiovascular: reports: see HPI Respiratory: reports: see HPI Gastrointestinal: reports: no symptoms reported Genitourinary: reports: no symptoms reported Past History - Adult - PAST MEDICAL HISTORY-ADULT Review of Records: reports: Old Records Reviewed, Nursing Assessment Review, Medications Reviewed, Social history reviewed & non-contributory. Major Childhood Illnesses: reports: denies history Cardiovascular: reports: CHF, HTN Respiratory: reports: denies history Gastrointestinal: reports: denies history Obstetrical/Gynecological: reports: denies history Genitourinary: reports: denies history Musculoskeletal: reports: denies history Neurological: reports: denies history Endocrine/Immune: reports: denies history Other Conditions: reports: denies history - PRIOR SURGERIES/PROCEDURES Surgical/Procedure History: reports: reviewed, not pertinent - IMMUNIZATION STATUS Childhood Immunizations: See Nurse Assessment Flu Vaccine: See Nurse Assessment - FAMILY HISTORY Family History: reviewed, not pertinent - SOCIAL HISTORY Smoking: cigarettes, less than 1 pack/day Provider spent 3-5 mins advising pt. on dangers of tobacco.: Discussed manners to quit use, and f/u contacts for add'l counseling. Substance Use: alcohol Alcohol Use Frequency: every day Number of drinks per typical drinking period:: 1 drink Physical Exam-General - PHYSICAL EXAM-ADULT Initial Vital Signs Reviewed: Yes - CONSTITUTIONAL General Appearance: alert, no apparent distress. negative: lethargic, slow to respond - RESPIRATORY Respiratory: chest non-tender, wheezing (bilateral lung lower 1/3). negative: crackles, rhonchi - CARDIOVASCULAR Cardiovascular: normal peripheral pulses, regular rate, rhythm. negative: tachycardia, systolic murmur - GASTROINTESTINAL (ABDOMEN) Abdominal Exam: normal bowel sounds, non tender, soft. negative: guarding, rebound - MUSCULOSKELETAL Extremity: other (2 + pitting edema from mid thigh down to feet bilaterally.). negative: deformity, erythema - SKIN Integumentary: normal color, warm/dry. negative: cyanosis, ecchymosis, erythema, laceration(s), rash - NEUROLOGIC Neurologic: grossly normal. negative: aphasia, facial droop - PSYCHIATRIC Psych/Mental Status: normal mood/affect, oriented x 3. negative: anxious Progress - PLAN OF CARE/RESULTS Progress/Plan/Lab Results: Vital Signs - 8 hr 11/15/18 14:52 Temperature 97.9 F Pulse Rate 96 H Respiratory Rate 17 Blood Pressure 154/108 O2 Sat by Pulse Oximetry 99 Laboratory Results - last 24 hr 11/15/18 11/15/18 11/15/18 15:33 15:33 15:33 WBC 6.48 RBC 4.28 L Hgb 12.9 L Hct 35.0 L MCV 81.8 MCH 30.1 MCHC 36.9 RDW Std Deviation 14.5 Plt Count 116 L MPV 12.0 H Immature Gran % (Auto) 0.0 Neut % (Auto) 66.4 Lymph % (Auto) 27.6 [place] % (Auto) 4.0 Eos % (Auto) 1.4 Baso % (Auto) 0.6 Immature Gran # (Auto) 0.00 Neut # (Auto) 4.30 Lymph # (Auto) 1.79 [place] # (Auto) 0.26 Eos # (Auto) 0.09 Baso # (Auto) 0.04 Sodium 139 Potassium 4.1 Chloride 104 Carbon Dioxide 27 Anion Gap 8 BUN 13 Creatinine 1.1 Estimated GFR/1.73 m2 > 60 BUN/Creatinine Ratio 12 Glucose 67 L Calculated Osmolality 276 Calcium 8.9 Total Bilirubin 2.08 H AST 41 H ALT 14 Alkaline Phosphatase 71 Troponin T < 0.010 Total Protein 7.3 Albumin 3.6 Globulin 3.7 Albumin/Globulin Ratio 1.0 Orders Category Date Time Status cxr [CHEST-2 VIEWS] [RAD] Stat Exams 11/15/18 15:16 Completed BNP [PRO B-NATRIURETIC PEPTIDE] Stat Lab 11/15/18 15:33 Received CBC WITH ELECTRONIC DIFF [HEME] Stat Lab 11/15/18 15:33 Completed COMPREHENSIVE METABOLIC PANEL [CHEM] Stat Lab 11/15/18 15:33 Completed TROPONIN T Stat Lab 11/15/18 15:33 Completed Furosemide [Lasix] Med 11/15/18 15:17 Discontinued 40 mg IV NOW ONE Nitroglycerin Med 11/15/18 15:17 Discontinued 0.5 inch TOP NOW ONE EKG [EKG] Stat Ther 11/15/18 15:17 Ordered Result Diagrams: 11/15/18 15:33 11/15/18 15:33 - CONSULTS/PCP/HOSPITALIST Notification #1 *Consult/PCP/Hospitalist*: MAGALIE Soto admitting for Dr. Aguilar Time Discussed: 16:49 Consult Disposition: Admit (Hx, PE and pt care discussed, accepted.) Departure - Departure Date of Disposition Decision: 11/15/18 Time of Disposition Decision: 16:49 DIAGNOSIS: CHF exacerbation Qualifiers: Heart failure type: unspecified Qualified Code(s): I50.9 - Heart failure, unspecified Disposition: ADMITTED INPATIENT 09 Certified Medical Emergency: Emergent Condition: Stable Referrals and Follow-Ups: None,PCP [Primary Care Provider] - - Critical Care Note This patient required my direct & personal management of CC.: No Attestation - Physician/ LUTHER Attestation Patient care was provided by Advanced Practice Provider:: No The physician spent face to face time with patient:: Yes Advanced Practice Provider documentation review:: Supervising physician onsite and consulted in the evaluation and care of this patient. The physician did have a face to face encounter with the patient. This chart was documented by the indicated scribe, (Jennifer Whitfield Scribe) and accurately reflects the services I performed and decisions made by me, Jigna Carpenter MD, as attested by the provider's signature.
--- NOTE | 2018-11-15 18:14 | HISTORY AND PHYSICAL ---
Agree with most components of history, physical, assessment and planning. Brief Mr. Acharya is 53 years old man with past medical history of medical noncompliance, nonischemic cardiomyopathy with ejection fraction of 20% and chronic systolic and diastolic congestive heart failure most likely in the setting of alcoholic cardiomyopathy, alcoholic liver cirrhosis, recently diagnosed apical left ventricular thrombus in September 2018, liver cirrhosis, right popliteal vein DVT in February 2018 comes in with chief complaints of bilateral lower extremity and abdominal swelling which has been progressively worsening. Apparently patient admits that he only took medicine for 2 days after discharge and has not been taking his medicines. In emergency room he has been hemodynamically stable. Hospitalist team has been consulted for further management. At the time of my evaluation he does not appear in acute shortness of breath. He states that he has been having exertional shortness of breath recently which is progressively getting worse and he has been increasingly having swelling of bilateral lower extremity and abdomen. VITALS: Temperature 97.9 degrees, pulse 96, respiratory 17, blood pressure 150/108, saturating 99% room air. PHYSICAL EXAMINATION: GENERAL: Does not appear in any acute distress. Oral cavity is moist. He has mild inspiratory crackles bilateral bases, no wheeze or rhonchi. S1 is obscured. He has early systolic murmur best heard in apical region. No rub or gallop. ABDOMEN: Obese and edematous. He has generalized anasarca, ascites with dullness to percussion bilateral flank and bilateral lower extremity edema extending up to thighs. He is alert, oriented x3. LABS: Consistent with thrombocytopenia, normocytic anemia, normal electrolytes except elevated bilirubin and AST, elevated proBNP. IMAGING: Chest x-ray has cardiomegaly. ASSESSMENT AND PLAN: 1. Acute systolic and diastolic congestive heart failure on chronic systolic and diastolic congestive heart failure with ejection fraction of 20% in September 2018 likely in the setting of alcoholic cardiomyopathy and medical noncompliance. 2. Liver cirrhosis. 3. Right popliteal vein deep venous thrombosis in February 2019 and left ventricular apical thrombus in September 2018 . 4. Medication noncompliance. 5. Alcohol abuse. PLAN: Start patient on intravenous diuresis. I will continue his home medications of beta blockers, losartan, hydralazine, Aldactone, I would also resume his Xarelto. I will admit patient under observation status and I will consult social services manager team to help him acquire medications. Plan of care discussed with him. All of his questions have been answered. cc: Ifitkhar Aguilar MD
--- NOTE | 2018-11-15 18:16 | HISTORY AND PHYSICAL ---
PRIMARY CARE PROVIDER: None. CARVING MACHINE OPERATOR: Dr. Hamm. CHIEF COMPLAINT: Swelling in lower extremities up to the abdomen. HISTORY OF PRESENT ILLNESS: Mr. Acharya is a 53-year-old male, who carries a past medical history of chronic diastolic systolic heart failure, severe cardiomyopathy, hypertension, history of a right popliteal venous thrombosis, apical thrombosis, and liver cirrhosis, who presented to the ED with several weeks of lower extremity edema that had moved up into his abdomen. He does get short of breath with the activity; however, he sleeps on his side. He does not have to be propped up on any pillows. He just states he uses a pillow to support his neck for neck pain. Chest x-ray in the ER showed cardiomegaly. The lungs were essentially clear and unchanged since his last discharge on 10/12/2018. He does not weigh himself daily. He does not watch how much fluid he intakes. He does not watch his salt intake. He will eat canned foods. He does try to use frozen vegetables and puts his own seasoning on them. He does not know if those have added salt. He states he had been taking some kind of fluid pill, but he ran out of that medication. He states that he has not gotten the rest of his medicines secondary to financial issues as he has not had a job since last February. He drinks 2 beers per day. We will admit him to the medical telemetry floor, continue with IV diuresis, and restart the home medications. He denied any chest pain, any palpitations, no headache, no fever, no chills, no cough, no vomiting, no nausea, diarrhea, or constipation, and no dysuria. He does have 2+ pitting edema from his feet up into his abdomen. REVIEW OF SYSTEMS: A 12 point review of systems was completed and negative except for those mentioned in HPI. PAST MEDICAL HISTORY: 1. Lower extremity DVT. 2. Hypertension. 3. Alcohol use. He does drink 2 beers per day. He states he does not have to have the beer every day. He does fine without it. 4. Tobacco use and abuse. 5. Chronic systolic and diastolic heart failure. 6. Severe cardiomyopathy with an EF of 20%. PAST SURGICAL HISTORY: I and D of a spider bite. SOCIAL HISTORY: He lives in [place]. He has been out of work since February. He is single. Smoker. He does drink 2 beers per day. FAMILY HISTORY: Mother with hypertension. ALLERGIES: No known drug allergies. HOME MEDICATIONS: Have not been reconciled; however, he was last discharged on: 1. Lasix 60 mg p.o. daily. 2. Hydralazine 50 mg p.o. t.i.d. 3. Coreg 12.5 mg p.o. q.12 hours. 4. Folic acid 1 mg p.o. daily. 5. Cozaar 50 mg p.o. twice a day. 6. Xarelto 20 mg p.o. daily. 7. Aldactone 25 mg p.o. daily. 8. Thiamine 100 mg p.o. daily. PHYSICAL EXAMINATION: VITAL SIGNS: Temperature is 97.9 degrees, heart rate 96, respirations 17, blood pressure 154/108, O2 is 99% on room air. GENERAL: Mr. Acharya is a pleasant, 53-year-old male who is sitting up in the stretcher in no acute distress. No difficulty breathing. No use of accessory muscles. He is not on any supplemental O2. HEENT: Atraumatic, normocephalic. PERRL. NECK: Supple. Trachea midline. CV: S1, S2 appreciated. I could appreciate some PACs or PVCs. We do not have an EKG. We will go ahead and obtain an EKG now. He was not on telemetry in the room at this time. RESPIRATORY: Lung sounds clear bilaterally, decreased in the bases. GI: Swollen, somewhat tender to the touch. Hypoactive bowel sounds 4 quadrants. EXTREMITIES: Lower extremity edema, 2+ pitting from the abdomen down to the feet. Bilateral pedal pulses were hard to assess secondary to pitting edema. I did not appreciate any oozing. NEUROLOGIC: No focal deficits noted. DIAGNOSTIC DATA: Chest x-ray: Cardiomegaly. LABORATORY DATA: White count 6, hemoglobin and hematocrit 12 and 35, platelet count is 116,000. Sodium 139, potassium 4.1, BUN 13, creatinine 1.1, blood glucose was 67, T bilirubin was 2.08, AST 41. ProBNP was 5288. PENDING: EKG. ASSESSMENT AND PLAN: 1. Acute on chronic systolic diastolic heart failure. We will continue with intravenous diuresis twice daily with 40 of Lasix. Initiate him on his Aldactone. His last ejection fraction was 20% on 10/11/2018. We will continue him on his oral hydralazine, Cozaar, and Aldactone. Strict inputs and outputs and daily weights. The patient will main further education on his congestive heart failure as well as his cardiomyopathy, and as far as following a healthy heart diet. 2. Severe cardiomyopathy. Ejection fraction is 20% with global hypokinesis on 10/11/2018. 3. Apical thrombus, seen on last ejection fraction. Also a history of a right popliteal deep venous thrombosis. Will resume his Xarelto. 4. Liver cirrhosis. Patient still consumes 2 beers per day. 5. Hypertension. Will continue home medications. 6. Further recommendations to follow physician evaluation, laboratory and diagnostic data. Dictated by SHARON Lomas for Iftikhar Aguilar MD cc: MD Giles Huitron MD I agree with most components of history, physical, assessment and plan. A separate addendum has been dictated. NEL
[2018-11-15] MEDS: COREG PO SCH (22:12)
[2018-11-15] MEDS: APRESOLINE PO SCH (22:12)
[2018-11-15] MEDS: COZAAR PO SCH (22:12)
[2018-11-15] MEDS: ALDACTONE PO SCH (22:12)
[2018-11-15] MEDS: LASIX IV SCH (22:12)
--- NOTE | 2018-11-16 00:31 | ED EKG INTERP ---
This chart was entered by Beverley Romero Scribe, acting as scribe for Jigna Carpenter MD. EKG Interpretation - EKG Time of EKG reading by physician:: 16:04 EKG Read and Signed by:: Jigna Post EKG Interpretation (*Must complete 3 of following elements*): Abnormal Rate: 90 Rhythm: NSR [place]: left QRS: normal NV Interval: normal ST Wave: normal Comments: possible left atiral enlargment Attestation - Physician/ LUTHER Attestation Patient care was provided by Advanced Practice Provider:: No The physician spent face to face time with patient:: Yes Advanced Practice Provider documentation review:: Supervising physician onsite and consulted in the evaluation and care of this patient. The physician did have a face to face encounter with the patient. This chart was documented by the indicated scribe, (Beverley Romero Scribe) and accurately reflects the services I performed and decisions made by , Jigna Carpenter MD, as attested by the provider's signature.
[2018-11-16 04:52] LABS: HEMOGLOBIN 11.8 g/dL (14.0-18.0); WBC 5.68 X1000 (4.8-10.8)
[2018-11-16 04:53] LABS: BASO# 0.04 X1000 (0.0-0.2); BASO% 0.7 % (0.0-0.8); EOS# 0.07 X1000 (0.0-0.7); EOS% 1.2 % (0.0-10.0); LYMPH% 21.1 % (20.5-51.1); MCH 30.3 PG (27-31); MCHC 36.9 g/dL (33-37); MCV 82.1 FL (81-99); MONO# 0.28 X1000 (0.11-0.59); MONO% 4.9 % (1.7-9.3); MPV 12.4 FL (7.4-10.4); NEUT# 4.09 X1000 (1.4-6.5); NEUT% 72.1 % (42.2-75.2); PLT 94 X1000 (130-400); RDW 14.4 % (11.5-14.5)
[2018-11-16 05:07] LABS: AGAP 14; BUN 14 mg/dL (8-22); CALCIUM 8.4 mg/dL (8.8-10.2); CHLORIDE 104 mmol/L (98-107); COSMO 279; CREATININE 1.1 mg/dL (0.7-1.2); ESTIMATED GFR > 60; GLUCOSE 84 mg/dL (70-104); MAGNESIUM 1.3 mg/dL (1.5-2.7); POTASSIUM 3.5 mmol/L (3.5-5.1); SODIUM 140 mmol/L (136-145); TCO2 22 mmol/L (25-35)
[2018-11-16] MEDS: XARELTO PO SCH (05:52)
--- NOTE | 2018-11-16 06:35 | Diag Imaging Result Doc PS360 ---
EXAM: CHEST-PORTABLE HISTORY: CHF TECHNIQUE: Portable chest single view COMPARISON: 11/15/2018 FINDINGS: The heart is markedly enlarged. However, there is no pulmonary edema. No pleural effusions identified. No pneumonia. IMPRESSION: Cardiomegaly Electronically signed by Cachorro Ríos 11/16/2018 6:33 AM
--- NOTE | 2018-11-16 07:37 | EKG Report ---
Test Performed on : 11/16/2018 07:15:09 AM Test Reason : heart failure admit Blood Pressure : / mmHG Vent. Rate : 075 BPM Atrial Rate : 075 BPM P-R Int : 110 ms QRS Dur : 110 ms QT Int : 466 ms P-R-T Axes : 258 -88 107 degrees QTc Int : 520 ms Unusual P axis and short AK, probable junctional rhythm. with undetermined rhythm irregularity. Left axis deviation Incomplete right bundle branch block Inferior infarct (cited on or before 03-MAR-2018) Anterior infarct (cited on or before 03-MAR-2018) Prolonged QT Abnormal ECG When compared with ECG of 15-NOV-2018 16:03, (Unconfirmed) Junctional rhythm. has replaced Sinus rhythm. Confirmed by Polo LUIS, Harjit Root ([id number]) on 11/17/2018 9:43:24 AM
--- NOTE | 2018-11-16 07:39 | EKG Report ---
Test Performed on : 11/15/2018 4:03:29 PM Test Reason : CP Blood Pressure : / mmHG Vent. Rate : 090 BPM Atrial Rate : 090 BPM P-R Int : 182 ms QRS Dur : 100 ms QT Int : 402 ms P-R-T Axes : 036 -84 070 degrees QTc Int : 491 ms Normal sinus rhythm. Possible Left atrial enlargement Left axis deviation Inferior infarct (cited on or before 03-MAR-2018) Anterolateral infarct (cited on or before 03-MAR-2018) Abnormal ECG When compared with ECG of 09-OCT-2018 06:08, Right bundle branch block is no longer present Questionable change in initial forces of Lateral leads Unconfirmed Result
[2018-11-16] MEDS: APRESOLINE PO SCH ×3 (08:11→17:29)
[2018-11-16] MEDS: VITAMIN B-1 PO SCH (08:11)
[2018-11-16] MEDS: ALDACTONE PO SCH ×2 (08:11→20:37)
[2018-11-16] MEDS: LASIX IV SCH ×3 (08:11→20:37)
[2018-11-16] MEDS: COREG PO SCH ×2 (08:11→20:37)
[2018-11-16] MEDS: COZAAR PO SCH ×2 (08:11→20:37)
[2018-11-16] MEDS ORDERED: LASIX IV SCH (09:00)
[2018-11-16] MEDS ORDERED: FOLIC ACID PO SCH (09:00)
[2018-11-16] MEDS ORDERED: ULTRAM PO PRN (11:49)
[2018-11-16] MEDS ORDERED: ULTRAM PO SCH (13:00)
[2018-11-16] MEDS: MAG-OX PO SCH ×2 (14:09→20:37)
[2018-11-16] MEDS: KLOR-CON PO SCH ×2 (14:09→17:29)
[2018-11-16] MEDS: MAGNESIUM SULFATE 2 GM/S.W.I. 2 GM/50 ML IVPB IV SCH ×2 (14:10→17:28)
--- NOTE | 2018-11-16 14:43 | PROGRESS NOTE ---
DATE: 11/16/2018 INTERVAL HISTORY: No acute events overnight. SUBJECTIVE: The patient was complaining of some muscle cramps and wanted pain medication. I am ordering a very low dose of tramadol. I instructed the patient to keep monitoring his urine output that it appears has not been documented properly. He denies any new complaints. Denies chest pain or shortness of breath. I discussed with him about my discussion with Stringing Machine Operator Team about getting him enrolled into occupational therapist aide program to help him get some medication at the time of discharge. I also discussed with him about increasing Lasix dose. I again counseled him about not using alcohol. OBJECTIVE: Current Vital Signs: Temperature 97.6 degrees, pulse 77, respiratory rate 18, blood pressure 150/110, saturating 100% on room air. General: He does not appear in any acute distress. HEENT: Oral cavity is moist. Lungs: Air entry bilaterally equal. No wheeze, rhonchi, or crackles. Heart: S1 is obscured. He has an early systolic murmur, best heard in the apical region. No rub or gallop. Abdomen: Obese, edematous, and dull to percussion in bilateral flanks. Extremities: He has bilateral lower extremity edema, extending up to thigh level. LABORATORY DATA: Normal hemoglobin, hematocrit, and platelet count. He does have significant hypomagnesemia, which is currently being repleted. I am also repeating his potassium. ASSESSMENT AND PLAN: 1. Acute systolic and diastolic congestive heart failure exacerbation on chronic systolic and diastolic congestive heart failure exacerbation with ejection fraction of 20% in 09/2018, likely in the setting of alcoholic cardiomyopathy and medication noncompliance. Increase the intravenous Lasix dose to 40 mg intravenously every 6 hours. Continue him on hydralazine, carvedilol, losartan, and spironolactone. 2. Hypomagnesemia and hypokalemia, currently being repleted. 3. Alcohol use disorder with history of alcoholic cirrhosis. I counseled him about stopping the use of alcohol. I will continue him on thiamine and multivitamin. 4. Right popliteal vein deep venous thrombosis in 02/2018 and left ventricular apical thrombus in 09/2018. Start the patient on Xarelto. 5. Medical noncompliance. Stringing Machine Operator Team has been consulted. The patient will be referred to [facility] to help him with his medications. 6. Disposition. I will continue to monitor the patient inside the hospital for need for intravenous diuresis considering his significant anasarca. Plan of care discussed with him. All of his questions have been answered. cc: Iftikhar Aguilar MD
[2018-11-17] MEDS: LASIX IV SCH ×3 (03:44→16:32)
[2018-11-17] MEDS: XARELTO PO SCH (05:58)
[2018-11-17 07:57] LABS: AGAP 10; BUN 17 mg/dL (8-22); CALCIUM 8.7 mg/dL (8.8-10.2); CHLORIDE 100 mmol/L (98-107); COSMO 281; CREATININE 1.3 mg/dL (0.7-1.2); ESTIMATED GFR > 60; GLUCOSE 99 mg/dL (70-104); MAGNESIUM 1.7 mg/dL (1.5-2.7); POTASSIUM 4.1 mmol/L (3.5-5.1); SODIUM 140 mmol/L (136-145); TCO2 30 mmol/L (25-35)
[2018-11-17] MEDS: ALDACTONE PO SCH ×2 (08:34→22:21)
[2018-11-17] MEDS: COZAAR PO SCH ×2 (08:34→22:21)
[2018-11-17] MEDS: THERA M PLUS PO SCH (08:34)
[2018-11-17] MEDS: MAG-OX PO SCH ×2 (08:34→22:21)
[2018-11-17] MEDS: APRESOLINE PO SCH ×3 (08:34→17:32)
[2018-11-17] MEDS: COREG PO SCH ×2 (08:34→22:21)
[2018-11-17] MEDS: VITAMIN B-1 PO SCH (08:37)
[2018-11-17] MEDS: MAGNESIUM SULFATE 2 GM/S.W.I. 2 GM/50 ML IVPB IV SCH ×2 (16:32→22:14)
--- NOTE | 2018-11-17 19:47 | PROGRESS NOTE ---
DATE: 11/17/2018 INTERVAL HISTORY: The patient has not been measuring his urine and his input and output has not been charted. I instructed the patient to collect his urine. I also instructed the nursing team about keeping a close input and output. SUBJECTIVE: The patient is feeling much better today. 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 I told him about the [facility] that we have referred him to and that we would help him with the medications. Subjectively, he denies new complaints. No chest pain. No shortness of breath. VITALS: Temperature 97.7 degrees, pulse 64, respiratory 17, blood pressure 120/89, saturating 100% on room air. PHYSICAL EXAMINATION: General: Not in any acute distress. HEENT: Oral cavity is moist. Lungs: Air entry bilaterally equal. No wheeze, rhonchi, crackles. Cardiovascular: S1 is obscured. Early systolic murmur best heard in the apical region. No rub or gallop. Abdomen: Obese, edematous, dull to percussion bilateral flanks. Extremities: He has bilateral lower extremity edema extending up to thigh level which is improving. LABS: Suggest his magnesium has been repleted, which I will further replete. He does have elevation of creatinine. ASSESSMENT AND PLAN: 1. Acute systolic and diastolic congestive heart failure exacerbation on chronic systolic and diastolic congestive heart failure exacerbation with ejection fraction of 20% in September 2018 in the setting of alcoholic cardiomyopathy and medication noncompliance. I will change his Lasix to p.o. with anticipated discharge tomorrow. Continue hydralazine, carvedilol losartan and spironolactone. 2. Hypomagnesemia is currently being repleted. Potassium is in acceptable range. 3. Alcohol use disorder with history of alcoholic cirrhosis. I counseled him about stopping the use of alcohol. I will continue him on thiamine and multivitamin. 4. Right popliteal vein deep venous thrombosis in February 2018 and left ventricular apical thrombus in September 2018. Continue the patient on Xarelto. 5. Medical noncompliance due to not being able to afford any of the medicines. Apparently, patient did not fill any medications after he was discharged last admission. [facility] referral has been made and patient should get medical assistance at a nearby pharmacy from [facility]. Social Work on board. DISPOSITION: I am changing patient's Lasix to p.o. If he had good urine output overnight on p.o. Lasix, my plan is to discharge him on p.o. Lasix as well as other cardiovascular medications and Xarelto tomorrow. Plan of care discussed with him. He is in agreement. cc: Iftikhar Aguilar MD
[2018-11-17] MEDS: LASIX PO SCH (22:25)
[2018-11-18] MEDS: XARELTO PO SCH (04:59)
[2018-11-18 08:08] LABS: AGAP 12; BUN 20 mg/dL (8-22); CALCIUM 8.6 mg/dL (8.8-10.2); CHLORIDE 98 mmol/L (98-107); COSMO 278; CREATININE 1.3 mg/dL (0.7-1.2); ESTIMATED GFR > 60; GLUCOSE 88 mg/dL (70-104); MAGNESIUM 1.7 mg/dL (1.5-2.7); POTASSIUM 3.9 mmol/L (3.5-5.1); SODIUM 138 mmol/L (136-145); TCO2 28 mmol/L (25-35)
[2018-11-18] MEDS: THERA M PLUS PO SCH (08:53)
[2018-11-18] MEDS: COZAAR PO SCH (08:53)
[2018-11-18] MEDS: APRESOLINE PO SCH ×2 (08:53→13:13)
[2018-11-18] MEDS: LASIX PO SCH (08:53)
[2018-11-18] MEDS: MAG-OX PO SCH (08:53)
[2018-11-18] MEDS: ALDACTONE PO SCH (08:53)
[2018-11-18] MEDS: VITAMIN B-1 PO SCH (08:53)
[2018-11-18] MEDS: COREG PO SCH (08:53)
[2018-11-18 14:40] VITALS: BP 130/91
--- NOTE | 2018-11-19 04:59 | DISCHARGE SUMMARY ---
ADMISSION DATE: 11/15/2018 DISCHARGE DATE: 11/18/2018 CONSULTATIONS: None. PERTINENT PROCEDURES: Initial chest x-ray, cardiomegaly. Followup chest x-ray, cardiomegaly. DISCHARGE DIAGNOSES: 1. Acute systolic and diastolic congestive heart failure exacerbation on chronic systolic and diastolic congestive heart failure exacerbation with an EF of 20% in September of 2018 in the setting of alcoholic cardiomyopathy and medication noncompliance. He was initially started on intravenous Lasix and transitioned to by mouth. He will be discharged home today to continue his hydralazine, carvedilol losartan, and spironolactone. He has had med assistance for 1 month of his medications. He has also been made aware of the 4 dollar medication list at [facility]. 2. Hypomagnesium, resolved. 3. Alcohol use disorder with a history of alcoholic cirrhosis. The patient has been counseled to stop the use of alcohol completely. Continue thiamine and multivitamin. 4. Right popliteal vein venous thrombosis in February of 2018 and left ventricle apical thrombosis in September of 2018. Continue Xarelto. 5. Medical noncompliance due to the patient not being able to afford medications. He did not fill his medications after his last discharge. Again, the [facility] has made a referral and he will be getting med assistance for 1 month. Audit Associate has also been working with him and he has received these medications through [facility] on [address]. ASSESSMENT PLAN: Mr. Acharya is a 53-year-old male who carries a past medical history of chronic diastolic and systolic heart failure, severe cardiomyopathy, hypertension, history of right popliteal venous thrombosis, apical thrombosis, and liver cirrhosis and alcohol abuse, who presented to the ED with several weeks of lower extremity edema that moved up into his abdomen. He did get short of breath with activity. However, he sleeps on his side. He did not have to be propped up on any pillows. His chest x-ray in the ED showed cardiomegaly. His lungs are essentially clear. The patient is noncompliant with his medications as well as his diet and he continues to drink a couple of beers per day. Upon his last discharge, he did not get his medication filled stating financial issues and he was admitted for acute on chronic systolic and diastolic heart failure, IV diuresed appropriately, started back on his Aldactone as well as other blood pressure medications. He was also started back on his Xarelto secondary to his DVT and apical thrombus. [facility] has set him up with the [facility] and [facility] on [address] who will give him his medication for 1 month. He has been diuresed appropriately and transitioned to p.o. Lasix. He has had a stable hospital course. He will be discharged home today. VITAL SIGNS: At time of discharge, temperature is 97.8 degrees, heart rate 65, blood pressure 130/91, O2 is 100% on room air. DISCHARGE DIET: Healthy heart. DISCHARGE MEDICATIONS: 1. Coreg 12.5 mg p.o. q.12 hours. 2. Aldactone 25 mg p.o. b.i.d. 3. Apresoline 50 mg p.o. t.i.d. 4. Cozaar 50 mg p.o. b.i.d. 5. Folic acid 1 mg p.o. daily. 6. Lasix 60 mg p.o. daily. 7. Mag-Ox 400 mg p.o. b.i.d. 8. Thera M Plus 1 each p.o. daily. 9. Ultram 25 mg p.o. q.8 hours p.r.n. 10. Vitamin B1 100 mg p.o. daily. 11. Xarelto 20 mg p.o. with supper. FOLLOWUP: Mr. Acharya is being discharged back home with self care. He has been given a 1 month prescription of his medications through [facility] in the [facility]. He is to follow up with his backup operator, Dr. Giles Hamm, on 12/03/2018. He is take all medications as prescribed. He has been educated on alcohol abstinence. He can return to the ED or call 911 for any worsening of symptoms. Dictated by SHARON Lomas for Axel Haines MD cc: MD Giles Gutierrez MD
[2018-11-19] MEDS ORDERED: LASIX PO SCH (09:00)
== END 2018-11-18 15:37 | disposition home or self-care (01) | DRG 293 ==
LOC: ED 14:46 → 3N 19:01 → SUATTDRO 19:01
PROVIDERS: ATTEND Internal Medicine
CPT/HCPCS: 71010; 71020; 71045; 71046; 80048; 80053; 82550; 83735; 83880; 84484; 85018; 85025; 93005; 93010; 96374; 99285; A9270; J1940; J3475

== ENCOUNTER 2019-06-26 09:54 | Inpatient (IN) ==
--- NOTE | 2019-06-26 10:08 | PROVIDER DOCUMENTATION ---
HPI-General Adult - General Chief Complaint: Edema Stated Complaint: SEVERE SWOLLEN RIGHT LEG Time Seen by Provider: 06/26/19 10:07 Source: patient Allergies/Adverse Reactions: Patient Allergies Allergy/AdvReac Type Severity Reaction Status Date / Time No Known Allergies Allergy Verified 06/26/19 10:20 Home Medications: Home Medication List Medication Instructions Recorded Confirmed Last Taken Type Folic Acid 1 mg PO DAILY tablet 03/12/18 Unknown Rx Magnesium Oxide [Mag-Ox] 400 mg PO BID 30 Days #60 tab 03/12/18 Unknown Rx Thiamine [Vitamin B-1] 100 mg PO DAILY 30 Days #30 tab 03/12/18 Unknown Rx Carvedilol [Coreg] 12.5 mg PO Q12HR #120 tab 11/18/18 Unknown Rx Furosemide [Lasix] 60 mg PO DAILY #90 tab 11/18/18 Unknown Rx Hydralazine [Apresoline] 50 mg PO 0900,1500,2100 #180 tab 11/18/18 Unknown Rx Losartan [Cozaar] 50 mg PO BID 30 Days #120 tab 11/18/18 Unknown Rx Multivit,Fe,Ca,FA & Min [Thera M 1 ea PO DAILY tab 11/18/18 Unknown Rx Plus] Rivaroxaban [Xarelto] 20 mg PO WSUPPER #90 tab 11/18/18 Unknown Rx Spironolactone [Aldactone] 25 mg PO BID 30 Days #120 tab 11/18/18 Unknown Rx Tramadol [Ultram] 25 mg PO Q8H PRN PRN #10 tab 11/18/18 Unknown Rx - History of Present Illness -Gen Adult Nature of Presenting Problems: PT. is 54 yom that presents with c/o right lower extremity swelling. Pt. reports he went to [facility] and they gave him antibiotics but it is worse. He reports symptoms off and on for months. He states once he was treated for a blood clot in his leg. He denies any other complaints. Location of Pain/Injury: reports: lower extremity (Right). denies: none, head, face, mouth, neck, chest, upper extremity, hand(s), abdomen, back, pelvis, genitalia, feet, upper body, lower body, generalized, other Pain Radiation: reports: no radiation. denies: arm(s), back, buttocks, chest, e pigastric, feet, groin, jaw, flank (L), legs (lower), LLQ, LUQ, neck, periumbilical, flank (R), RLQ, RUQ, shoulder(s), scapula, scrotal, sternal notch, suprapubic, legs (upper), urethral, vaginal, other Quality of Pain: reports: aching. denies: burning, sharp, tightness Severity: reports: moderate. denies: mild, severe Onset/Duration: reports: gradual, other (Months) Timing: reports: still present. denies: improving, intermittent, changing over time Context/Activities at Onset: reports: none. denies: light activity, moderate activity, vigorous activity, recent emotional stress, recent physical stress, recent trauma history, possible bad food, cold exposure, eating, out of country travel, rest, sleep, sexual activity, other Modifying Factors: improves with: nothing Associated Symptoms: reports: other (Right lower extremity pain). denies: denies symptoms, anxiety, arm pain, back/neck pain, chest pain, constipation, cough, diaphoresis, diarrhea, dizziness, EENT symptoms, fatigue, fever/chills, genitourinary problems, headaches, heartburn, joint pain, loss of appetite, malaise, muscle aches, sinus congestion/drainage, nausea, rash, seizure, shortness of breath, sensory/motor loss, pain with inspiration, swelling/mass in abdomen, syncope, vomiting, weakness, trouble walking Similar Symptoms Previously?: Yes Recently seen or treated by another doctor?: Yes Review of Systems - Adult - REVIEW OF SYSTEMS - ADULT Constitutional: reports: no symptoms reported Eyes: reports: no symptoms reported Ears, Nose, Mouth & Throat: reports: no symptoms reported Cardiovascular: reports: no symptoms reported Respiratory: reports: no symptoms reported Gastrointestinal: reports: no symptoms reported Genitourinary: reports: no symptoms reported Musculoskeletal: reports: see HPI, other (Right lower extremity pain). denies: bone pain, joint swelling, neck pain Integumentary: reports: no symptoms reported Neurological: reports: no symptoms reported Psychiatric: reports: no symptoms reported Past History - Adult - PAST MEDICAL HISTORY-ADULT Review of Records: reports: Old Records Reviewed, Nursing Assessment Review, Medications Reviewed, Social history reviewed & non-contributory. Major Childhood Illnesses: reports: denies history Cardiovascular: reports: denies history Respiratory: reports: denies history Gastrointestinal: reports: denies history Obstetrical/Gynecological: reports: denies history Genitourinary: reports: denies history Musculoskeletal: reports: denies history Neurological: reports: denies history Endocrine/Immune: reports: denies history Other Conditions: reports: denies history - IMMUNIZATION STATUS Childhood Immunizations: See Nurse Assessment Flu Vaccine: See Nurse Assessment - FAMILY HISTORY Family History: reviewed, not pertinent - SOCIAL HISTORY Smoking: denies Physical Exam-General - PHYSICAL EXAM-ADULT Initial Vital Signs Reviewed: Yes - CONSTITUTIONAL General Appearance: alert, mild distress. negative: anxious, slow to respond, obtunded, combative - EYES Eyes: PERRL/EOMI, pink conjunctivae - HEAD, EARS, NOSE, MOUTH & THROAT HENMT: normocephalic/atraumatic, moist mucous membranes - NECK Neck: non-tender, full range of motion, supple, normal inspection - RESPIRATORY Respiratory: lungs clear, normal breath sounds - CARDIOVASCULAR Cardiovascular: regular rate, rhythm, no JVD, tachycardia. negative: extra beats, friction rub, irregularly irregular - GASTROINTESTINAL (ABDOMEN) Abdominal Exam: normal bowel sounds, non tender, soft - LYMPHATIC Lymphatic: no adenopathy - MUSCULOSKELETAL Back Exam: normal inspection, no CVA tenderness, no vertebral tenderness Extremity: swelling (Right lower extremity), tenderness (Right lower extremity). negative: deformity Peripheral Pulses: radial (R): 2+, radial (L): 2+ - SKIN Integumentary: normal color, normal turgor, warm/dry - NEUROLOGIC Neurologic: grossly normal, no motor/sensory deficits - PSYCHIATRIC Psych/Mental Status: normal mood/affect, normal thought content, normal thought process, oriented x 3. negative: anxious, paranoid, tearful Progress - PLAN OF CARE/RESULTS Progress/Plan/Lab Results: Vital Signs - 8 hr 06/26/19 09:59 Temperature 97.4 F L Pulse Rate 101 H Respiratory Rate 20 Blood Pressure 122/84 O2 Sat by Pulse Oximetry 92 L Orders Category Date Time Status CBC WITH ELECTRONIC DIFF [HEME] Stat Lab 06/26/19 10:07 Uncollected COMPREHENSIVE METABOLIC PANEL [CHEM] Stat Lab 06/26/19 10:07 Uncollected D-DIMER [COAG] Stat Lab 06/26/19 10:07 Uncollected PRO B-NATRIURETIC PEPTIDE Stat Lab 06/26/19 10:07 Ordered Laboratory Tests 06/26/19 06/26/19 06/26/19 10:28 10:28 10:28 WBC 7.92 RBC 4.76 Hgb 13.2 L Hct 37.9 L MCV 79.6 L MCH 27.7 MCHC 34.8 RDW Std Deviation 18.9 H Plt Count 104 L MPV 11.8 H Immature Gran % (Auto) 0.0 Neut % (Auto) 73.2 Lymph % (Auto) 21.1 Pennington % (Auto) 4.8 Eos % (Auto) 0.5 Baso % (Auto) 0.4 Immature Gran # (Auto) 0.00 Neut # (Auto) 5.80 Lymph # (Auto) 1.67 [place] # (Auto) 0.38 Eos # (Auto) 0.04 Baso # (Auto) 0.03 D-Dimer, Quantitative Sodium 141 Potassium 3.6 Chloride 100 Carbon Dioxide 24 L Anion Gap 17 BUN 27 H Creatinine 1.6 H Estimated GFR/1.73 m2 54 BUN/Creatinine Ratio 17 Glucose 107 H Calculated Osmolality 287 Calcium 8.5 L Total Bilirubin 2.61 H AST 33 ALT 14 Alkaline Phosphatase 58 Pwl-P-Xqnhylzsfss Pept 3809 H Total Protein 7.6 Albumin 3.6 Globulin 4.0 Albumin/Globulin Ratio 0.9 06/26/19 10:28 WBC RBC Hgb Hct MCV MCH MCHC RDW Std Deviation Plt Count MPV Immature Gran % (Auto) Neut % (Auto) Lymph % (Auto) Pennington % (Auto) Eos % (Auto) Baso % (Auto) Immature Gran # (Auto) Neut # (Auto) Lymph # (Auto) Penning[place] # (Auto) Eos # (Auto) Baso # (Auto) D-Dimer, Quantitative 8.35 H Sodium Potassium Chloride Carbon Dioxide Anion Gap BUN Creatinine Estimated GFR/1.73 m2 BUN/Creatinine Ratio Glucose Calculated Osmolality Calcium Total Bilirubin AST ALT Alkaline Phosphatase Hjz-[id number]-Laipclqdkfm Pept Total Protein Albumin Globulin Albumin/Globulin Ratio Discussed patient with Dr. Saucedo and he recommends admission. Discussed results and plan of care with patient. Patient agrees with plan and verbalizes understanding. Result Diagrams: 06/26/19 10:28 06/26/19 10:28 - CONSULTS/PCP/HOSPITALIST Notification #1 *Consult/PCP/Hospitalist*: Brittany Faustin Time Discussed: 13:39 Reason/Comments: Admission Consult Disposition: Will see in ED, Admit Departure - Departure Date of Disposition Decision: 06/26/19 Time of Disposition Decision: 13:39 DIAGNOSIS: Peripheral edema, Renal insufficiency DVT (deep venous thrombosis) Qualifiers: DVT location: lower extremity Affected thrombotic vein of extremity: popliteal Chronicity: unspecified Laterality: right Qualified Code(s): I82.431 - Acute embolism and thrombosis of right popliteal vein Disposition: ADMITTED INPATIENT 09 Certified Medical Emergency: Emergent Condition: Stable Referrals and Follow-Ups: None,PCP [Primary Care Provider] - - Critical Care Note This patient required my direct & personal management of CC.: No Attestation - Physician/ LUTHER Attestation Patient care was provided by Advanced Practice Provider:: Yes Advanced Practice Provider:: Wade Lombardi Advanced Practice Provider documentation review:: The Mid-level provider documentation, treatment plan and medical decision making was reviewed by the physician who agrees with all treatment and medical decision making by the MLP. The physician spent face to face time with patient:: No Advanced Practice Provider documentation review:: Supervising physician onsite and consulted in the evaluation and care of this patient. The physician did not have a face to face encounter with the patient.
[2019-06-26 10:40] LABS: BASO# 0.03 X1000 (0.0-0.2); BASO% 0.4 % (0.0-0.8); EOS# 0.04 X1000 (0.0-0.7); EOS% 0.5 % (0.0-10.0); HEMATOCRIT 37.9 % (42.0-52.0); HEMOGLOBIN 13.2 g/dL (14.0-18.0); LYMPH# 1.67 X1000 (1.2-3.4); LYMPH% 21.1 % (20.5-51.1); MCH 27.7 PG (27-31); MCHC 34.8 g/dL (33-37); MCV 79.6 FL (81-99); MONO# 0.38 X1000 (0.11-0.59); MONO% 4.8 % (1.7-9.3); MPV 11.8 FL (7.4-10.4); NEUT% 73.2 % (42.2-75.2); PLT 104 X1000 (130-400); RBC 4.76 XMIL (4.7-6.1); RDW 18.9 % (11.5-14.5); WBC 7.92 X1000 (4.8-10.8)
[2019-06-26 11:15] LABS: ALB/GLOB RATIO 0.9; ALBUMIN 3.6 g/dL (3.5-5.0); CALCIUM 8.5 mg/dL (8.8-10.2); CREATININE 1.6 mg/dL (0.7-1.2); POTASSIUM 3.6 mmol/L (3.5-5.1); TOTAL BILIRUBIN 2.61 mg/dL (0.20-1.00); TOTAL PROTEIN 7.6 g/dL (6.3-8.3)
[2019-06-26] MEDS ORDERED: TYLENOL PO PRN (16:30)
[2019-06-26] MEDS ORDERED: LOVENOX SUBQ SCH (16:30)
[2019-06-26 17:47] LABS: INR 1.47; PROTIME 18.1 Seconds (11.0-16.0)
[2019-06-26] MEDS: ULTRAM PO PRN (18:34)
--- NOTE | 2019-06-26 18:51 | HISTORY AND PHYSICAL ---
PRIMARY CARE PROVIDER: None. MINING ENGINEER: Dr. aHmm. CHIEF COMPLAINT: Right lower extremity pain. HISTORY OF PRESENT ILLNESS: Mr. Acharya is a 54-year-old male well known to our service for multiple admissions for a right lower extremity DVT, systolic and diastolic congestive heart failure with an EF of 20%, history of alcoholic cirrhosis, medical noncompliance secondary to affordability issues. He reports since 2018 when he was 1st diagnosed with his right lower extremity DVT that he will have intermittent swelling in that right lower extremity. It will come and go. He has had another DVT in that leg since then. There is again question of whether he is taking all his medications. He reports this time the swelling stared one month despite doubling lasix it continuted to swell. He went to [place] [facility] and was given wasgiven antibiotics, but the swelling continued to worsen. It is so bad now he can no longer walkon that leg. It is almost double the size of his left. He does have intermittent shortness ofbreath. He is not complaining of any shortness of breath right now. He did quit alcohol back in February. He has cut back his cigarette smoking to a pack every 3 days and he takes his medications when he can afford them. He denies any headache, fever, chills, chest pain, any current shortness of breath. No abdominal pain. No issues with nausea, vomiting, diarrhea, or constipation. He does report the easy satiety, no real appetite. Workup in the ED with venous Dopplers does reveal an acute embolism and thrombus of the right popliteal vein and an increase in his renal insufficiency. We will admit him and start him on [id number] mg p.o. at bedtime with a lovenox bridge. Monitor his PT and INR daily. Start him back on some of his home medications. Night Stocker to see him for medication assistance again as well. PAST MEDICAL HISTORY: 1. Systolic and diastolic congestive heart failure with a known EF of 20%. 2. Right lower extremity DVT. 3. Hypertension. 4. Alcohol use, which he has stopped last February. 5. Tobacco use and abuse. He has cut down to a pack every 3 days. 6. Severe cardiomyopathy. PAST SURGICAL HISTORY: I and D of a spider bite. SOCIAL HISTORY: He lives in [place]. He has been out of work. He is single. Again, he does smoke. He has stopped drinking. FAMILY HISTORY: Mother with hypertension. ALLERGIES: No known drug allergies. MEDICATIONS: Home medications are being compiled. PHYSICAL EXAMINATION: VITAL SIGNS: Temperature is 97.4 degrees, heart rate 81, respirations 12, blood pressure 135/109, O2 is 100% on room air. GENERAL: Mr. Acharya is a pleasant 54-year-old male who is lying in the bed in no acute distress. HEENT: Atraumatic, normocephalic. PERRL. NECK: Supple, trachea midline. CARDIOVASCULAR: S1, S2 appreciated. No murmurs, gallops, rubs noted. RESPIRATORY: Lung sounds clear. He does have some fine crackles in his right lower base. No rales, rhonchi, or wheezes otherwise. GI: He is obese. It is soft, nontender, nondistended. Positive bowel sounds 4 quadrants. No anasarca. EXTREMITIES: Lower extremities, he does have a lot of swelling and erythema and warmness to his right lower extremity, double the size of the left. His left also has some swelling with pitting edema. NEUROLOGIC: No focal deficits noted. DIAGNOSTIC DATA: Per HPI. LABORATORY DATA: White count 7, hemoglobin and hematocrit 13 and 37, platelet count 104,000. D- dimer 8.35. Sodium 141, potassium 3.6, BUN 27, creatinine 1.6, blood glucose is 107, T bilirubin 2.61. ProBNP is 3809. ASSESSMENT/PLAN: 1. Right lower extremity deep vein thrombosis, acute on chronic. I will place him on Coumadin 10 at bedtime bridged with full-dose Lovenox. PT and INR daily. Social Service consult for medication assistance. 2. Chronic systolic and diastolic heart failure with severe cardiomyopathy with an ejection fraction of 20%. We will put him back on his home Lasix and Coreg. We will hold his Cozaar for now given his renal insufficiency. 3. Renal insufficiency. He does have a bump up in his BUN and creatinine. We will recheck that in the a.m. 4. Alcohol use. He has stopped drinking beer back in February. 5.Tobacco use and abuse: He has cut back to 1 pack every 3 days. 6. Hypertension. Continue home medications. 7. Medical noncompliance known. The patient does keep his regular followups with Dr. Hamm. He does take his medications when he is able. He has been out of work since last February. 8. Further recommendations to follow physician evaluation, laboratory and diagnostic data. Dictated by SHARON Lomas for Sam Faustin MD cc: Giles Hamm MD Patient with tense edema of RLE below the knee. consistent with another DVT. patient has been oncompliant with his anticoagulation secondary to cost. will place on coumadin and bridge with lovenox since that appears to be the only drug he is likely to consistently afford at this point. the importance of monitoring and potential deadly complications of not keeping an eye on his INR emphasized to the patient. MTDD
[2019-06-26] MEDS: ALDACTONE PO SCH (21:36)
[2019-06-26] MEDS: APRESOLINE PO SCH (21:36)
[2019-06-26] MEDS: COREG PO SCH (21:37)
[2019-06-26] MEDS: COUMADIN PO SCH (21:37)
[2019-06-27 07:53] LABS: INR 1.5; PROTIME 18.4 Seconds (11.0-16.0)
[2019-06-27 07:54] LABS: PTT 33.4 Seconds (22.3-41.8)
[2019-06-27 08:01] LABS: ALBUMIN 3.1 g/dL (3.5-5.0); CREATININE 1.5 mg/dL (0.7-1.2); MAGNESIUM 1.4 mg/dL (1.5-2.7); POTASSIUM 3.3 mmol/L (3.5-5.1); TOTAL BILIRUBIN 2.8 mg/dL (0.20-1.00); TOTAL PROTEIN 6.2 g/dL (6.3-8.3)
--- NOTE | 2019-06-27 08:42 | Diag Imaging Result Doc PS360 ---
EXAM: CHEST-2 VIEWS 06/27/2019 HISTORY: fu TECHNIQUE: PA and lateral chest COMMENT: There is no evidence of acute cardiac or pulmonary disease. Compared to 11/16/2018 there has been no significant change in the appearance of the chest. IMPRESSION: Cardiomegaly. No evidence of acute disease. Electronically signed by Avi Orozco 06/27/2019 8:40 AM
[2019-06-27] MEDS: COREG PO SCH ×2 (10:16→21:23)
[2019-06-27] MEDS: ALDACTONE PO SCH ×2 (10:16→21:22)
[2019-06-27] MEDS: APRESOLINE PO SCH ×3 (10:17→21:23)
[2019-06-27] MEDS: LASIX PO SCH (10:17)
[2019-06-27] MEDS: ULTRAM PO PRN ×2 (10:17→21:23)
[2019-06-27] MEDS: ZOFRAN IV PRN ×2 (10:46→21:23)
--- NOTE | 2019-06-27 13:12 | PROGRESS NOTE ---
DATE: 06/27/2019 SUBJECTIVE: Mr. Acharya was admitted yesterday on 06/26/2019, came in with right lower extremity pain. A 54-year-old, black male, who is well known to our service, multiple admissions for right lower extremity DVT, systolic and diastolic congestive heart failure, ejection fraction 20%, history of alcoholic cirrhosis, medical noncompliance secondary to affordability issues, could not afford the Xarelto. He reports that in 2018, he was first diagnosed with right lower extremity DVT, that he would have intermittent swelling in the right lower extremity that would come and go. He has had another DVT in the leg since then. Again, a question of whether he is taking medications, but he admits that he was able to take the starter pack for Xarelto, but unable to afford Xarelto maintenance dose. It was 500 dollars. He went to [facility], was given some antibiotics, but continued to have worsening swelling, and so presented here. He did quit alcohol back in February, and cut back on his cigarette smoking to a pack every 3 days. He takes his medication when he can afford it. PAST MEDICAL HISTORY: 1. Systolic and diastolic congestive heart failure. Ejection fraction 20%. 2. Right lower extremity DVT. 3. Hypertension. 4. Alcohol use, which he stopped in February. 5. Tobacco use and abuse. He cut down to a pack every 3 days. 6. Severe cardiomyopathy. PAST SURGICAL HISTORY: He had an I and D of a spider bite in the past. ASSESSMENT AND PLAN: 1. Admitted with right lower extremity deep vein thrombosis, acute on chronic. He was put on Coumadin, and he is on Lovenox until the Coumadin is therapeutic. Still complains of quite a bit of pain and swelling in that right leg. 2. Renal insufficiency. He had a bump in his BUN and creatinine, and following that, that seems to have improved. 3. Alcohol use. He stopped drinking in February. 4. Tobacco use and abuse. He has cut that down. 5. Hypertension. 6. His appetite is poor, mainly because of the pain in his leg, and any movement causes discomfort. REVIEW OF MEDICATION: He is on Coumadin 10 mg at bedtime, Coreg 12.5 mg b.i.d., Lovenox 80 mg subcutaneously every 24 hours, Lasix 40 mg a day, Apresoline 50 mg t.i.d., spironolactone 25 mg b.i.d., tramadol 25 mg every 8 hours p.r.n. I am going to change his Lovenox to every 12 hour dosing. He needs to get 80 mg every 12 hours. cc: Harjit Cuellar MD
[2019-06-27] MEDS: LOVENOX SUBQ SCH (16:00)
[2019-06-27] MEDS: COUMADIN PO SCH (21:22)
[2019-06-28] MEDS: LOVENOX SUBQ SCH ×3 (01:04→20:52)
[2019-06-28 07:50] LABS: INR 1.96; PROTIME 22.7 Seconds (11.0-16.0)
[2019-06-28 07:51] LABS: PTT 44.4 Seconds (22.3-41.8)
[2019-06-28] MEDS: LASIX PO SCH (08:37)
[2019-06-28] MEDS: APRESOLINE PO SCH ×3 (08:37→20:51)
[2019-06-28] MEDS: ALDACTONE PO SCH ×2 (08:37→20:51)
[2019-06-28] MEDS: COREG PO SCH ×2 (08:37→20:51)
--- NOTE | 2019-06-28 10:01 | PROGRESS NOTE ---
DATE: 06/28/2019 Mr. Acharya may feel a little better, a little less pain in the leg. He had a pretty good night, still pretty uncomfortable. He is eating well. Bowels are moving good. OBJECTIVE: Vital Signs: He remains afebrile, temperature 98.0 degrees, pulse 90, respirations 18, blood pressure 103/83. HEENT: Pupils are equal and round. Lungs: Are clear in all lung buckley. Cardiovascular: Regular rhythm and rate without murmur or S3. Abdomen: Is soft. Skin: Is warm and dry. Urine output 1200 mL. ASSESSMENT AND PLAN: 1. Right lower extremity deep venous thrombosis, acute on chronic. He is started on Coumadin. He is on full dose Lovenox. Clinically doing a little bit better. 2. Renal insufficiency. His BUN and creatinine when he presented were 27, 1.6. This morning or on the they were 27 and 1.6. Yesterday, 26, 1.5. He does have some chronic renal insufficiency. Chest x-ray shows some cardiomegaly. No evidence of acute disease. 3. He has chronic systolic and diastolic heart failure with an ejection fraction of 20%. He is on Lasix and Coreg. Blood pressures look good, 121/90 103/76, 99/85, 103/83. cc: Harjit Cuellar MD
[2019-06-28] MEDS: COUMADIN PO SCH (20:51)
[2019-06-29] MEDS: LOVENOX SUBQ SCH ×2 (09:18→21:18)
[2019-06-29] MEDS: APRESOLINE PO SCH ×3 (09:18→21:17)
[2019-06-29] MEDS: ALDACTONE PO SCH ×2 (09:18→21:17)
[2019-06-29] MEDS: LASIX PO SCH (09:18)
[2019-06-29] MEDS: COREG PO SCH ×2 (09:18→21:17)
--- NOTE | 2019-06-29 09:34 | EKG Report ---
Test Performed on : 06/29/2019 09:28:39 AM Test Reason : verify heart rhythm ?tele reading Blood Pressure : / mmHG Vent. Rate : 094 BPM Atrial Rate : 357 BPM P-R Int : 000 ms QRS Dur : 110 ms QT Int : 414 ms P-R-T Axes : 000 255 058 degrees QTc Int : 517 ms Atrial fibrillation. with premature ventricular or aberrantly conducted complexes. Pulmonary disease pattern Right bundle branch block Septal infarct (cited on or before 03-MAR-2018) Inferior infarct (cited on or before 03-MAR-2018) Abnormal ECG When compared with ECG of 16-NOV-2018 07:15, Atrial fibrillation. has replaced Junctional rhythm. Confirmed by Costa LUIS, Shiv Gutierres ([id number]) on 06/30/2019 12:22:57 PM
[2019-06-29 09:52] LABS: INR 2.74; PROTIME 29.8 Seconds (11.0-16.0)
--- NOTE | 2019-06-29 13:07 | PROGRESS NOTE ---
DATE: 06/29/2019 SUBJECTIVE: Mr. Acharya's leg is softer. He is feeling better. He is eating well. His bowels are moving good. He had taken a free trial of Xarelto, but then he could not afford the actual medicine, so I think he needs to go on Coumadin, but we need to get him a followup physician. I explained that all to him. He is getting Coumadin 4 mg at bedtime, and his PT is 29, INR is 2.74, so we will start walking him tomorrow with Physical Therapy, and I hope to get him home Thursday. OBJECTIVE: Vital Signs: Temperature 98.6 degrees, pulse 84, respirations 18, blood pressure 113/88. HEENT: Pupils are equal and round. Lungs: Clear in all lung buckley. Cardiovascular: Regular rhythm and rate without murmur or S3. Abdomen: Soft. Skin: Warm and dry. ASSESSMENT AND PLAN: 1. Right lower extremity deep venous thrombosis, acute on chronic. He was put on Coumadin. He is on full-dose Lovenox in the interim. I think Coumadin is therapeutic now. Will stop the Lovenox tomorrow. Will start him on physical therapy and walking, make sure he can ambulate. Hopefully go home on Thursday. 2. Renal insufficiency. BUN and creatinine have been stable. His BUN is 26, creatinine 1.5 on 06/27/2019. 3. He has chronic systolic and diastolic congestive heart failure. Ejection fraction is estimated to be about 20%. His volume status looks good. Breathing is good. He is on spironolactone 25 mg twice daily, Lasix 40 mg a day, Coreg 12.5 mg twice daily. cc: Harjit Cuellar MD
[2019-06-29] MEDS: COUMADIN PO SCH (21:17)
[2019-06-29] MEDS: ULTRAM PO PRN (21:22)
[2019-06-30] MEDS: LASIX PO SCH (08:53)
[2019-06-30] MEDS: COREG PO SCH ×2 (08:53→22:07)
[2019-06-30] MEDS: ALDACTONE PO SCH ×2 (08:53→22:07)
[2019-06-30] MEDS: LOVENOX SUBQ SCH ×2 (08:53→22:07)
[2019-06-30] MEDS: APRESOLINE PO SCH ×3 (08:53→22:06)
[2019-06-30 08:56] LABS: INR 2.73; PROTIME 29.7 Seconds (11.0-16.0)
[2019-06-30 08:57] LABS: PTT 60.3 Seconds (22.3-41.8)
--- NOTE | 2019-06-30 10:04 | PROGRESS NOTE ---
DATE: 06/30/2019 Mr. Acharya's leg feels a little bit better. We are going to start some physical therapy today. If he can walk and do okay, hopefully go home tomorrow and keep him on the Coumadin. OBJECTIVE: Vital Signs: Temperature 98.8 degrees, pulse 83, respirations 14, blood pressure 122/96. HEENT: Pupils are equal and round. Lungs: Are clear in all lung buckley. Cardiovascular: Regular rhythm and rate without murmur or S3. Abdomen: Is soft. Skin: Is warm and dry. Urine output is 1500 mL. ASSESSMENT AND PLAN: Right lower extremity deep venous thrombosis, acute on chronic. He will be on the Coumadin. We will stop the Lovenox today. His pro time was 29.7. He is on Coumadin 4 mg a day and we are going to start physical therapy. Hopefully, he can be discharged tomorrow. cc: Harjit Cuellar MD
[2019-06-30] MEDS: COUMADIN PO SCH (22:06)
--- NOTE | 2019-07-01 05:49 | Extremity Venous Study ---
PROCEDURE NAME: Venous U/S Right Leg - 06/26/2019 STUDY: Right lower extremity venous duplex study. DATE OF STUDY: 06/26/2019. REFERRING PRACTITIONER: Harjit COX PHYSICIAN: Dr. Castaneda. MACHINE STONE POLISHER APPRENTICE: Gee. INDICATIONS: Right leg swelling. FINDINGS: The deep and superficial veins of the right lower extremity were imaged throughout their course. The right common femoral, superficial femoral, and greater saphenous veins were compressible patent without thrombus. There is DVT, however, in the popliteal, peroneal, posterior tibial, and gastrocnemius veins. INTERPRETATION: Acute DVT of the calf veins as described above. cc: Robles Castaneda MD
[2019-07-01 07:38] LABS: INR 2.72; PROTIME 29.6 Seconds (11.0-16.0)
[2019-07-01 07:40] LABS: PTT 64.1 Seconds (22.3-41.8)
[2019-07-01] MEDS: ZOFRAN IV PRN ×2 (10:44→18:23)
[2019-07-01] MEDS: COREG PO SCH ×2 (10:47→20:11)
[2019-07-01] MEDS: ALDACTONE PO SCH ×2 (10:47→20:11)
[2019-07-01] MEDS: LOVENOX SUBQ SCH (10:48)
[2019-07-01] MEDS: LASIX PO SCH (10:48)
[2019-07-01] MEDS: APRESOLINE PO SCH ×3 (10:48→20:11)
[2019-07-01] MEDS ORDERED: ZOFRAN IV PRN (13:49)
--- NOTE | 2019-07-01 14:06 | PROGRESS NOTE ---
DATE: 07/01/2019 Mr. Acharya says he feels terrible. He is complaining of some nausea and he states he has trouble with swallowing food. When I asked him if he has trouble with food going down he said no but is more than just appetite. He just feels like he gets choked on the food sometimes. He is breathing comfortably at the present time. The patient wants to return home with his mother. He will need to get a primary care to check his labs. He is on Coumadin. EXAM: Today afebrile, temperature 98, pulse 96, respirations 19, blood pressure 105/72. Pupils are equal and round.Lungs: Clear in all lung buckley. Cardiovascular: Regular rhythm and rate without murmur or S3, urine output is 2100 mL. ASSESSMENT AND PLAN: 1. Right lower extremity deep venous thrombosis, acute on chronic. He is on Coumadin, is therapeutic. I think he is ready go home when he is able to ambulate. His lab, pro time is 29, INR is 2.72. He is on 4 mg Coumadin at bedtime. 2. The nausea. I do not know if he has some underlying gastritis. We will stop the Lovenox. 3. Renal insufficiency. His BUN and creatinine are stable. BUN is 26, creatinine is 1.5. Reviewing his orders, I do not really see any other change in medication. He is on spironolactone 25 mg twice a day and he does have a history of systolic and diastolic heart failure but he does not appear to have volume overload. His blood pressures have done well so we will recheck his electrolytes and creatinine and CBC, will check a T4 and TSH as well and stop his Lovenox and increase activity with physical therapy. cc: Harjit Cuellar MD
[2019-07-01] MEDS: COUMADIN PO SCH (20:11)
[2019-07-02] MEDS: ZOFRAN IV PRN ×2 (03:09→14:01)
--- NOTE | 2019-07-02 07:01 | Diag Imaging Result Doc PS360 ---
EXAM: CHEST-PORTABLE 07/02/2019 HISTORY: chf TECHNIQUE: AP portable at 0624 COMMENT: The appearance of the chest has not changed significantly since the previous examination of 06/27/2019. IMPRESSION: Cardiomegaly. Stable chest. Electronically signed by Avi Orozco 07/02/2019 6:59 AM
[2019-07-02 07:23] LABS: INR 2.54; PROTIME 28.1 Seconds (11.0-16.0)
[2019-07-02 07:24] LABS: PTT 53.9 Seconds (22.3-41.8)
[2019-07-02 07:37] LABS: ALB/GLOB RATIO 0.8; ALBUMIN 3.2 g/dL (3.5-5.0); CALCIUM 8.4 mg/dL (8.8-10.2); CREATININE 1.9 mg/dL (0.7-1.2); MAGNESIUM 1.4 mg/dL (1.5-2.7); POTASSIUM 3.1 mmol/L (3.5-5.1); TOTAL BILIRUBIN 2.4 mg/dL (0.20-1.00); TOTAL PROTEIN 7.1 g/dL (6.3-8.3)
[2019-07-02 07:42] LABS: BASO# 0.01 X1000 (0.0-0.2); BASO% 0.2 % (0.0-0.8); HEMATOCRIT 31.6 % (42.0-52.0); HEMOGLOBIN 11.2 g/dL (14.0-18.0); LYMPH# 0.54 X1000 (1.2-3.4); LYMPH% 10.6 % (20.5-51.1); MCH 27.9 PG (27-31); MCHC 35.4 g/dL (33-37); MCV 78.6 FL (81-99); MONO# 0.24 X1000 (0.11-0.59); MONO% 4.7 % (1.7-9.3); MPV 12.5 FL (7.4-10.4); NEUT% 84.5 % (42.2-75.2); PLT 112 X1000 (130-400); RBC 4.02 XMIL (4.7-6.1); RDW 18.7 % (11.5-14.5); WBC 5.09 X1000 (4.8-10.8)
[2019-07-02 08:14] LABS: FREE T4 1.23 ng/dL (0.93-1.70); TSH 1.85 uIUmL (0.27-4.20)
[2019-07-02] MEDS: APRESOLINE PO SCH ×3 (09:53→20:14)
[2019-07-02] MEDS: LASIX PO SCH (09:53)
[2019-07-02] MEDS: ALDACTONE PO SCH ×2 (09:53→20:20)
[2019-07-02] MEDS: COREG PO SCH ×2 (09:53→20:20)
[2019-07-02 10:23] LABS: BANDS 2 % (0-1); MONO 4 % (1-9); SEGS 94 % (42-75)
[2019-07-02 10:24] LABS: HYPOCHROM 1+
--- NOTE | 2019-07-02 13:46 | PROGRESS NOTE ---
DATE: 07/02/2019 SUBJECTIVE: Mr. Acharya feels better. His leg, he is able to walk around pretty good. He is not getting down much food. He says all of his food comes back up and he said this has been going on a while. OBJECTIVE: Vital signs: Temperature 98 degrees, pulse 96, respirations 22, blood pressure 113/75. HEENT: Pupils are equal and round. Lungs: Clear in all lung buckley. Cardiovascular: Regular rhythm and rate without murmur or S3. URINE OUTPUT: Is 1200 mL. ASSESSMENT AND PLAN: 1. Right lower extremity deep venous thrombosis, acute on chronic, doing better. He is on Coumadin. Prothrombin time is 28, INR 2.4. He is off of his Lovenox. 2. Difficult to get a complete picture from his history, but he says he is able to swallow the food but it comes right back up. I am going to put him on high-dose proton pump inhibitor and we are going to try a little bit of Carafate. I am going to ask Gastroenterology to see and see if there is any concerns there. 3. Congestive heart failure. Aware. 4. Renal insufficiency. Creatinine is 1.9, fluctuating from 1.5 to 1.9. cc: Harjit Cuellar MD
[2019-07-02] MEDS: COUMADIN PO SCH (20:20)
[2019-07-03 08:26] LABS: INR 2.63; PROTIME 28.9 Seconds (11.0-16.0)
[2019-07-03 08:27] LABS: PTT 47.6 Seconds (22.3-41.8)
[2019-07-03 08:33] LABS: CALCIUM 8.4 mg/dL (8.8-10.2); CREATININE 2.5 mg/dL (0.7-1.2); MAGNESIUM 1.5 mg/dL (1.5-2.7); POTASSIUM 3.5 mmol/L (3.5-5.1)
[2019-07-03] MEDS: ALDACTONE PO SCH (11:06)
[2019-07-03] MEDS: LASIX PO SCH (11:06)
[2019-07-03] MEDS: COREG PO SCH ×2 (11:06→21:17)
[2019-07-03] MEDS: APRESOLINE PO SCH ×3 (11:06→21:20)
--- NOTE | 2019-07-03 13:07 | PROGRESS NOTE ---
DATE: 07/03/2019 SUBJECTIVE: Mr. Acharya is feeling better and he is able to ambulate. He is swallowing but he says he just takes a few bites and seems to be tolerating that well. He does not feel like he is ready go home, wants to try to go home tomorrow. He has been laying in bed most of the time, getting up and walking to the bathroom without any issues. PHYSICAL EXAMINATION: Temperature 98.0 degrees, pulse 96, respirations 22, blood pressure 113/75. Pupils are equal and round. Lungs are clear in all lung buckley. Cardiovascular Examination: Regular rhythm and rate without murmur or S3. Abdomen is soft. Skin is warm and dry. LABORATORY DATA: Reviewed from yesterday. Sodium 133, potassium 3.5, chloride 93, BUN 43, creatinine 2.5 so it bumped up from 1.9. His prothrombin time is 28. ASSESSMENT AND PLAN: Acute on chronic deep venous thrombosis. His blood pressures appear to be well-controlled. I may go down on some of his blood pressure medicines but he does have a little bit of what appears to be chronic kidney disease. I am going to stop his Lasix as his creatinine did bump up and continue his hydralazine at 50 mg three times a day. I will cut down his spironolactone to once a day. In fact, I may stop the spironolactone for now. He is on Coreg 12.5 mg twice a day. We will see if he can go home tomorrow. The patient is going to need to have a followup to check prothrombin times. cc: Harjit Cuellar MD
[2019-07-03] MEDS: COUMADIN PO SCH (21:17)
[2019-07-04 08:21] LABS: INR 2.85; PROTIME 30.7 Seconds (11.0-16.0)
[2019-07-04 08:27] LABS: CALCIUM 8.6 mg/dL (8.8-10.2); CREATININE 1.8 mg/dL (0.7-1.2); MAGNESIUM 1.7 mg/dL (1.5-2.7); POTASSIUM 3.5 mmol/L (3.5-5.1)
[2019-07-04] MEDS: COREG PO SCH ×2 (08:28→20:47)
[2019-07-04] MEDS: APRESOLINE PO SCH ×3 (08:28→20:47)
--- NOTE | 2019-07-04 09:21 | PROGRESS NOTE ---
DATE: 07/04/2019 SUBJECTIVE: Mr. Acharya says he has had a little trouble breathing when he lays on his right side and had a little bit of coughing. His leg feels fine. He is able to ambulate but he is concerned about his breathing. He says he lives with his mom and does not want her to worry about him. He remains afebrile. OBJECTIVE: Temperature 98.6 degrees, pulse 117, respirations 18, blood pressure 120/97. He does not have any distended neck veins. His lungs are clear. I do not hear any rales in his lungs. Cardiovascular Examination: Regular rhythm and rate without murmur or S3. Abdomen is soft. Skin is warm and dry. Urine output is 2600 mL. ASSESSMENT AND PLAN: 1. Acute on chronic deep venous thrombosis. We put him on Coumadin. He could not afford the other medications. His prothrombin time is 30 so I probably need to back down on his Coumadin to 3 mg. 2. Congestive heart failure with decreased ejection fraction and dilated cardiomyopathy. I had cut down on some of his diuretics because of electrolytes and I am going to check a chest x- ray. He appeared to have a bump in creatinine as well. That has come down from 2.5 to 1.8 so we will check a chest x-ray and see how his volume is doing but his electrolytes look better. Renal function looks better. Hopefully, he can go home soon. cc: Harjit Cuellar MD
--- NOTE | 2019-07-04 10:26 | Diag Imaging Result Doc PS360 ---
CHEST-2 VIEWS - 07/04/2019 INDICATION: chf COMPARISON: 07/02/2019 FINDINGS: There is stable cardiomegaly. Pulmonary vascularity is normal. No infiltrates or edema. No pneumothorax or pleural effusion. IMPRESSION: Cardiomegaly. Electronically signed by Zachery Fisher 07/04/2019 10:24 AM
[2019-07-04] MEDS: ZOFRAN IV PRN (14:06)
[2019-07-04] MEDS: COUMADIN PO SCH (20:47)
[2019-07-05] MEDS: COREG PO SCH ×2 (09:21→20:14)
[2019-07-05] MEDS: APRESOLINE PO SCH ×3 (09:21→20:14)
--- NOTE | 2019-07-05 16:54 | PROGRESS NOTE ---
DATE: 07/05/2019 SUBJECTIVE: This morning Mr. Acharya refers to be doing okay. No new complaints. He still continues to have remarkable swelling in his abdomen and in his legs. The right is more swollen than the left. OBJECTIVE: Vital Signs: His current vitals shows blood pressure of 103/82, pulse of 91, respirations 19, and temperature 97.6 degrees. Patient is saturating 97% on room air. General: Mr. Acharya is a 54-year-old gentleman. He is in bed in no distress. HEENT: Mucosa is pink and moist. Anicteric. Acyanotic. Neck: Supple. Positive JVD. Chest: Air entry is bilaterally reduced. There is some crackles in the posterior lung buckley. Cardiovascular: Regular rate and rhythm. There is about 3/6 TR murmur. GI: Abdomen is remarkably distended with fluid shift. Dullness. Extremities: About 2+ pedal edema. The right looks more remarkably swollen than the left. DIAGNOSTIC: A chest x-ray yesterday shows cardiomegaly. An echocardiogram from last year did show an ejection fraction of 20 to 35 percent with global impairment. Right ventricle also is dilated. The pulmonary artery pressure was 95 mmHg. CURRENT MEDICATIONS: All have been reviewed. ASSESSMENT: 1. Fluid overload secondary to congestive heart failure exacerbation. The patient's ejection fraction is 20% to 25%. We are going to continue using diuretics. 2. Severe dilated cardiomyopathy with severe pulmonary hypertension, and severe diastolic dysfunction on an echocardiogram done in February of 2018. A repeat echocardiogram done last year had similar findings, biventricular failure, severe pulmonary hypertension. 3. Acute renal failure, presumably cardiorenal syndrome. 4. Folate deficiency. We will replace. 5. Right lower extremity DVT. Patient on Coumadin, INR is therapeutic. cc: Donnell Britt MD MTDNena
[2019-07-05] MEDS: COUMADIN PO SCH (20:14)
[2019-07-06 07:49] LABS: HEMATOCRIT 32.6 % (42.0-52.0); HEMOGLOBIN 11.4 g/dL (14.0-18.0); MCH 27.5 PG (27-31); MCV 78.6 FL (81-99); MPV 11.3 FL (7.4-10.4); RBC 4.15 XMIL (4.7-6.1); RDW 18.8 % (11.5-14.5); WBC 4.2 X1000 (4.8-10.8)
[2019-07-06 08:04] LABS: INR 2.99; PROTIME 31.9 Seconds (11.0-16.0)
[2019-07-06 08:06] VITALS: BP 109/79
[2019-07-06 08:20] LABS: CALCIUM 8.3 mg/dL (8.8-10.2); CREATININE 1.7 mg/dL (0.7-1.2); PHOSPHORUS 2.5 mg/dL (2.7-4.5)
[2019-07-06] MEDS: COREG PO SCH (08:33)
[2019-07-06] MEDS: APRESOLINE PO SCH ×2 (08:33→15:17)
[2019-07-06] MEDS ORDERED: POTASSIUM PHOSPHATE 40 MEQ in NS 250 ML IV ONE (09:02)
[2019-07-06] MEDS ORDERED: LASIX PO SCH (10:30)
--- NOTE | 2019-07-06 10:57 | PROGRESS NOTE ---
DATE: 07/06/2019 SUBJECTIVE: This morning, Mr. Acharya refers to be doing well. He has no new complaints. OBJECTIVE: Vital Signs: Blood pressure is 109/79, pulse of 78, respirations are 18, temperature is 97.9 degrees, the patient is saturating 99% on room air. General Examination: Mr. Acharya is a 54-year-old, gentleman. He is in bed. No distress. HEENT: Mucosa is pink and moist. Anicteric. Acyanotic. Neck: Supple. Mild JVD is noted. Respiratory System: Air entry is bilaterally reduced. A few crackles in the posterior lung buckley. Cardiovascular: Regular rate and rhythm. There is a 3/6 TR murmur. GI: Abdomen is soft. It is distended. There is positive fluid shift. Extremities: About 2+ pedal edema. The right looks slightly more swollen than the left. SUPERVISOR KNITTING: Patient is awake, alert, and oriented. Laboratory Data: WBC is 4.20, hemoglobin is 11.4, platelet count of 86,000. INR is 2.9. Chemistry is also reviewed. Creatinine is 1.9. Albumin is 3.0, patient's phosphorus is 2.5. ASSESSMENT: 1. Fluid overload, from congestive heart failure exacerbation. However, underlying other possible etiologies could include liver cirrhosis. The patient is on diuretic therapy. 2. Severe dilated cardiomyopathy with ejection fraction of 20% to 25% noted. The patient is on a combination of hydralazine with Isordil as well as Coreg and Aldactone. 3. Acute renal failure. Creatinine continues to be trending down. This is presumed to be cardiorenal physiology. The patient is having adequate urine output. He is currently negative balance. 4. Folate deficiency. We will continue replacement. 5. Right lower extremity deep venous thrombosis. Patient is on Coumadin. INR is therapeutic. 6. Pancytopenia, presumably from vitamin deficiencies including folate. However, an underlying cirrhosis is also a possibility. The patient's previous hepatitis panel was negative. I think this could be a cardiac cirrhosis, taking into consideration the severe ejection fraction as well as the severe pulmonary artery hypertension that has been documented in his previous echocardiograms. 7. Cor pulmonale with a dilated right ventricle. The pulmonary artery systolic pressure was estimated to be 95 mmHg on an echocardiogram done in February 2018, which could potentially be the source of the right heart failure. PLAN: In general, I think Mr. Acharya is clinically stable. He has a few mineral and vitamin deficiencies, which have been replaced orally. We have switched his IV Lasix to p.o. Continue with the other medications as in the EMR. We are pending an ultrasound of the abdomen to look at the liver as well as the spleen to rule out possible cirrhosis. I think Mr. Acharya is a potential discharge today. I have discussed with case management and he is going to be given recommendations to go to [facility] for his INR and other medical needs. Mr. Acharya will also follow up with cardiology. cc: Donnell Britt MD MTDD
[2019-07-06] MEDS ORDERED: KLOR-CON PO ONE (11:03)
--- NOTE | 2019-07-06 11:53 | Diag Imaging Result Doc PS360 ---
US ABDOMEN-COMPLETE - 07/06/2019 INDICATION: suspected cirrhosis COMPARISON: CT from 10/08/2018 FINDINGS: There is a very small amount of ascites. The liver is somewhat atrophic with a nodular contour compatible with cirrhosis. No biliary dilation. Common bile duct measures 3 mm. The gallbladder is contracted with nonspecific wall thickening. Spleen length is about 12 cm. The pancreas and both kidneys are normal. Aorta, IVC, and main portal vein are patent. IMPRESSION: Cirrhosis. Very small amount of ascites. Collapsed gallbladder. Electronically signed by Zachery Fisher 07/06/2019 11:50 AM
[2019-07-06] MEDS ORDERED: ZOFRAN ODT PO PRN (11:56)
[2019-07-06] MEDS ORDERED: NEUTRA-PHOS PO SCH (13:00)
[2019-07-06] MEDS ORDERED: ALDACTONE PO SCH (21:00)
[2019-07-07] MEDS ORDERED: VITAMIN B-1 PO SCH (09:00)
[2019-07-07] MEDS ORDERED: FOLIC ACID PO SCH (09:00)
--- NOTE | 2019-07-07 14:31 | DISCHARGE SUMMARY ---
ADMISSION DATE: 06/26/2019 DISCHARGE DATE: 07/06/2019 DISPOSITION: Home. FOLLOW UP: 1. SHARON Toscano. 2. Dr. Hamm. CONSULTATIONS DURING THIS ADMISSION: None. IMAGING STUDIES OF SIGNIFICANCE: 1. Ultrasound of the right lower extremity showed an acute DVT of the calf veins. 2. A chest x-ray showed cardiomegaly. No evidence of acute disease. 3. Ultrasound of the abdomen showed cirrhosis, very small amount of ascites, collapsed gallbladder. ADMISSION DIAGNOSES: 1. Right lower extremity deep vein thrombosis. 2. Congestive heart failure with ejection fraction of 20%. 3. Renal insufficiency. 4. Alcohol use. 5. Tobacco use. 6. Medical noncompliance. DIAGNOSES AT THE TIME OF DISCHARGE: 1. Fluid overload secondary to a combination of congestive heart failure, cirrhosis of the liver, hypoalbuminemia. 2. Severe dilated cardiomyopathy with an ejection fraction of 20 to 25%, presumably alcohol induced. 3. Acute kidney injury, presumably cardiorenal. 4. Folate deficiency. 5. Right lower extremity deep vein thrombosis. 6. Pancytopenia with vitamin deficiency secondary to nutritional deficiencies and cirrhosis of the liver. 7. Cor pulmonale with dilated right ventricle associated with pulmonary artery systolic pressure of 99 mmHg on echocardiogram done in February 2018. 8. 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 9. Medical noncompliance. DISCHARGE MEDICATIONS: 1. Folic acid 1 mg p.o. daily. 2. Magnesium oxide. 3. Thiamine 100 mg p.o. daily. 4. Multivitamin 1 tab daily. 5. Hydralazine 50 mg 3 times per day. 6. Isordil 10 mg 3 times per day. 7. Furosemide 40 mg p.o. daily. 8. Coumadin 3 mg p.o. daily. 9. Carvedilol 25 mg b.i.d. 10. Spironolactone 25 mg b.i.d. PRESENTING COMPLAINT: Right lower extremity pain. HISTORY OF PRESENT COMPLAINT: Mr. Acharya is a 54-year-old gentleman who is known to have multiple admissions for right lower extremity DVTs, systolic heart failure, alcohol cirrhosis, medical noncompliance, came to the emergency department because of generalized swelling and right lower extremity swelling with pain. Upon presentation, he was evaluated and he was found to be in congestive heart failure and fluid overload. He was admitted for further medical care. HOSPITAL COURSE: Mr. Acharya was admitted to the medical floor. He was started on IV diuretic therapy. Ultrasound of the lower extremities was done which came back positive for acute DVT. He was started on Coumadin. The patient was initially supposed to have been on Xarelto as part of his home medications, but he was noncompliant. He was therefore started on Coumadin and he became therapeutic. Mr. Acharya's all other comorbidities were addressed during the hospital course. He was also found to be remarkably low in albumin and with the history of severe right heart failure, ultrasound of the abdomen was done which came back positive with cirrhosis of the liver which we think is a combination of cardiac and alcohol cirrhosis. He is supposed to follow up with a Development Trainer. This morning Mr. Acharya is doing well. His INR is 2.99, which is therapeutic. His vitals remain stable with a blood pressure of 109/79, pulse of 78, respiration is 18, temperature 97.8 degrees. He is currently negative balance of 6,875. We think he is fairly stable to be discharged. Social Workers and Case Management have already spoken extensively with him. Appointment has also be made with SHARON Toscano at the [facility] for Mr. Acharya to follow up and get care accordingly. He is also supposed to follow up with Dr. Hamm as well as Dr. Burks for the cirrhosis of the liver. All the discharge instructions have been discussed with him. He voiced understanding. TIME SPENT FOR DISCHARGE: Thirty-eight minutes. cc: MD Erick Watson CRNP William D. Denney, MD Manish Arora, MD
== END 2019-07-06 17:17 | disposition home or self-care (01) | DRG 299 ==
LOC: ED 09:54 → SUATTDRO 15:16 → 3N 15:16
PROVIDERS: ATTEND Internal Medicine

== ENCOUNTER 2019-07-21 12:23 | Inpatient (IN) ==
[2019-07-21 13:43] LABS: BASO# 0.02 X1000 (0.0-0.2); BASO% 0.3 % (0.0-0.8); EOS# 0.02 X1000 (0.0-0.7); EOS% 0.3 % (0.0-10.0); HEMATOCRIT 31.6 % (42.0-52.0); HEMOGLOBIN 10.9 g/dL (14.0-18.0); IMM GRAN# 0.02 X1000 (0.0-0.04); IMM GRAN% 0.3 % (0.0-0.5); MCH 27.2 PG (27-31); MCHC 34.5 g/dL (33-37); MCV 78.8 FL (81-99); MONO# 0.42 X1000 (0.11-0.59); MONO% 6.3 % (1.7-9.3); MPV 11.7 FL (7.4-10.4); NEUT# 4.99 X1000 (1.4-6.5); NEUT% 74.8 % (42.2-75.2); PLT 130 X1000 (130-400); RBC 4.01 XMIL (4.7-6.1); RDW 18.6 % (11.5-14.5); WBC 6.67 X1000 (4.8-10.8)
[2019-07-21 14:02] LABS: AGAP 14; ALB/GLOB RATIO 0.8; ALBUMIN 3.3 g/dL (3.5-5.0); ALKALINE PHOSPHATASE 50 U/L (32-122); BUN 25 mg/dL (8-22); CHLORIDE 98 mmol/L (98-107); COSMO 280; CREATININE 1.4 mg/dL (0.7-1.2); ESTIMATED GFR > 60; GLUCOSE 99 mg/dL (70-104); GOT 15 U/L (10-34); GPT 9 U/L (10-44); SODIUM 138 mmol/L (136-145); TCO2 26 mmol/L (25-35); TOTAL BILIRUBIN 2.42 mg/dL (0.20-1.00); TOTAL PROTEIN 7.5 g/dL (6.3-8.3)
[2019-07-21] MEDS ORDERED: DUONEB (A & A) INH ONE (16:04)
--- NOTE | 2019-07-21 16:31 | Diag Imaging Result Doc PS360 ---
EXAM: CHEST-2 VIEWS HISTORY: SOB TECHNIQUE: Two views COMPARISON: 07/11/2019 FINDINGS: The lungs are well expanded. The heart is enlarged. The vessels are not distended. There are no infiltrates. No pleural effusions. IMPRESSION: Cardiomegaly, but no congestive failure. Electronically signed by Cachorro Ríos 07/21/2019 4:29 PM
--- NOTE | 2019-07-21 16:42 | PROVIDER DOCUMENTATION ---
This chart was entered by Jennifer Whitfield Scribe, acting as scribe for Ann Smith MD. HPI-General Adult - General Chief Complaint: Edema Stated Complaint: CLOT IN RT LEG,FLUID OVERLOAD Time Seen by Provider: 07/21/19 15:20 Source: patient Allergies/Adverse Reactions: Patient Allergies Allergy/AdvReac Type Severity Reaction Status Date / Time No Known Allergies Allergy Verified 07/21/19 15:57 Home Medications: Home Medication List Medication Instructions Recorded Confirmed Last Taken Type Apixaban [Eliquis] 5 mg PO BID tab 07/30/19 Unknown Rx Carvedilol [Coreg] 25 mg PO BID #120 tab 07/30/19 Unknown Rx Digoxin [Lanoxin] 125 microgm PO DAILY #60 tab 07/30/19 Unknown Rx Hydralazine [Apresoline] 50 mg PO TID@0800,1400,2100 #180 07/30/19 Unknown Rx tab Isosorbide Dinitrate [Isordil] 10 mg PO TID #180 tab 07/30/19 Unknown Rx Spironolactone [Aldactone] 25 mg PO BID 60 Days #120 tab 07/30/19 Unknown Rx Furosemide [Lasix] 60 mg PO DAILY #1 tab 08/01/19 Unknown Rx - History of Present Illness -Gen Adult Nature of Presenting Problems: Patient is a 54 year old male who presents with pain and swelling to bilateral lower extremities. States history of DVT to right leg. Reports being on a blood thinner. States seeing Dr. Hamm this morning. Location of Pain/Injury: reports: lower extremity (bilateral) Pain Radiation: reports: no radiation Quality of Pain: reports: aching Severity: reports: mild Onset/Duration: reports: gradual Timing: reports: still present Context/Activities at Onset: reports: light activity Associated Symptoms: reports: other (increase in swelling) Similar Symptoms Previously?: Yes Recently seen or treated by another doctor?: Yes Review of Systems - Adult - REVIEW OF SYSTEMS - ADULT Constitutional: reports: no symptoms reported Eyes: reports: no symptoms reported Ears, Nose, Mouth & Throat: reports: no symptoms reported Cardiovascular: reports: no symptoms reported Respiratory: reports: no symptoms reported Gastrointestinal: reports: no symptoms reported Genitourinary: reports: no symptoms reported Musculoskeletal: reports: see HPI, other (pain and swelling to BLE) Integumentary: reports: no symptoms reported Neurological: reports: no symptoms reported Psychiatric: reports: no symptoms reported Endocrine: reports: no symptoms reported Hematologic/Lymphatic: reports: no symptoms reported Allergic/Immunologic: reports: no symptoms reported All Other Systems: Reviewed and Negative Past History - Adult - PAST MEDICAL HISTORY-ADULT Review of Records: reports: Old Records Reviewed, Nursing Assessment Review, Medications Reviewed, Social history reviewed & non-contributory. Major Childhood Illnesses: reports: denies history Cardiovascular: reports: CHF, HTN Respiratory: reports: denies history Gastrointestinal: reports: denies history Obstetrical/Gynecological: reports: denies history Genitourinary: reports: denies history Musculoskeletal: reports: denies history Neurological: reports: denies history Psychiatric: reports: denies history Endocrine/Immune: reports: denies history Other Conditions: reports: denies history - PRIOR SURGERIES/PROCEDURES Surgical/Procedure History: reports: reviewed, not pertinent - IMMUNIZATION STATUS Childhood Immunizations: See Nurse Assessment Flu Vaccine: See Nurse Assessment - FAMILY HISTORY Family History: reviewed, not pertinent - SOCIAL HISTORY Smoking: cigarettes (former) Substance Use: denies Living Situation: alone Physical Exam-General - PHYSICAL EXAM-ADULT Initial Vital Signs Reviewed: Yes - CONSTITUTIONAL General Appearance: alert, no apparent distress - HEAD, EARS, NOSE, MOUTH & THROAT HENMT: normocephalic/atraumatic, moist mucous membranes - NECK Neck: supple - RESPIRATORY Respiratory: chest non-tender, no respiratory distress, crackles - CARDIOVASCULAR Cardiovascular: regular rate, rhythm, systolic murmur (06/20) - GASTROINTESTINAL (ABDOMEN) Abdominal Exam: normal bowel sounds, non tender, soft - MUSCULOSKELETAL Extremity: normal range of motion, swelling (BLE), tenderness - SKIN Integumentary: normal color, normal turgor, other (open wounds to horowitz of LLE) - NEUROLOGIC Neurologic: grossly normal - PSYCHIATRIC Psych/Mental Status: normal mood/affect, normal thought content, normal thought process, oriented x 3 Progress - PLAN OF CARE/RESULTS Progress/Plan/Lab Results: Vital Signs - 8 hr 07/21/19 12:32 Temperature 97.7 F Pulse Rate 86 Respiratory Rate 16 Blood Pressure 127/93 O2 Sat by Pulse Oximetry 99 Laboratory Results - last 24 hr 07/21/19 07/21/19 12:56 12:56 WBC 6.67 RBC 4.01 L Hgb 10.9 L Hct 31.6 L MCV 78.8 L MCH 27.2 MCHC 34.5 RDW Std Deviation 18.6 H Plt Count 130 MPV 11.7 H Immature Gran % (Auto) 0.3 Neut % (Auto) 74.8 Lymph % (Auto) 18.0 L Wirt % (Auto) 6.3 Eos % (Auto) 0.3 Baso % (Auto) 0.3 Immature Gran # (Auto) 0.02 Neut # (Auto) 4.99 Lymph # (Auto) 1.20 Wirt # (Auto) 0.42 Eos # (Auto) 0.02 Baso # (Auto) 0.02 Sodium 138 Potassium 4.0 Chloride 98 Carbon Dioxide 26 Anion Gap 14 BUN 25 H Creatinine 1.4 H Estimated GFR/1.73 m2 > 60 BUN/Creatinine Ratio 18 Glucose 99 Calculated Osmolality 280 Calcium 9.0 Total Bilirubin 2.42 H AST 15 ALT 9 L Alkaline Phosphatase 50 Total Protein 7.5 Albumin 3.3 L Globulin 4.2 Albumin/Globulin Ratio 0.8 Orders Category Date Time Status CBC WITH DIFF [HEME] Stat Lab 07/21/19 12:56 Completed CMP [COMPREHENSIVE METABOLIC PANEL] [CHEM] Stat Lab 07/21/19 12:56 Completed Result Diagrams: 07/27/19 07:25 07/31/19 18:29 - XRAY 1 XRAY Study: Chest Impression: See EMR Report ( EXAM: CHEST-2 VIEWS HISTORY: SOB TECHNIQUE: Two views COMPARISON: 07/11/2019 FINDINGS: The lungs are well expanded. The heart is enlarged. The vessels are not distended. There are no infiltrates. No pleural effusions. IMPRESSION: Cardiomegaly, but no congestive failure. Electronically signed by Cachorro Ríos 07/21/2019 4:29 PM 07/21/19 1629 Interpreting Physician: Cachorro Ríos MD Dictated Date/Time: 07/21/19 1629 cc: Ann Smith MD; Giles Hamm MD) - CONSULTS/PCP/HOSPITALIST Notification #1 *Consult/PCP/Hospitalist*: Dr. Hamm Time Discussed: 16:40 Reason/Comments: Dr. Smith consulted with Dr. Hamm about patient Consult Disposition: other (states pt with CHF exacerbation and needs chronic DVT management as pt has issues with compliance. will plan for admission.) #2 Consult: Brittany Time Discussed: 17:00 Consult Disposition: Will see in ED, Admit Departure - Departure Date of Disposition Decision: 07/21/19 Time of Disposition Decision: 16:45 DIAGNOSIS: CHF exacerbation, Nonadherence to medication, Tobacco abuse, Cough, Elevated brain natriuretic peptide (BNP) level, DVT (deep venous thrombosis), Peripheral edema Disposition: ADMITTED INPATIENT 09 Certified Medical Emergency: Emergent Condition: Stable - Critical Care Note This patient required my direct & personal management of CC.: No Attestation - Physician/ LUTHER Attestation Patient care was provided by Advanced Practice Provider:: No The physician spent face to face time with patient:: Yes Advanced Practice Provider documentation review:: Supervising physician onsite and consulted in the evaluation and care of this patient. The physician did have a face to face encounter with the patient. This chart was documented by the indicated scribe, (Jennifer Whitfield Scribe) and accurately reflects the services I performed and decisions made by me, Ann Smith MD, as attested by the provider's signature.
[2019-07-21 16:46] LABS: PTT 34.8 Seconds (22.3-41.8)
[2019-07-21 16:50] LABS: INR 1.47; PROTIME 18.1 Seconds (11.0-16.0)
[2019-07-21] MEDS ORDERED: ALBUMIN 25% IV ONE (20:40)
--- NOTE | 2019-07-21 21:32 | HISTORY AND PHYSICAL ---
PRIMARY CARE PROVIDER: None. EXPERIMENTAL MACHINIST: Dr. Hamm. CHIEF COMPLAINT: Sent from Dr. Hamm's office for lower extremity pain and swelling. HISTORY OF PRESENT ILLNESS: Mr. Acharya is a 54-year-old gentleman, well known to our service for multiple admissions for right lower extremity DVT, systolic and diastolic congestive heart failure with an EF of 20%, alcoholic cirrhosis, medical noncompliance secondary to affordability issues, alcohol use, which he has continued abstinence since last February, tobacco use and abuse. He quit smoking a few weeks ago. Severe cardiomyopathy. He was most recently admitted to our service on 06/26/2019, again for continued right lower extremity DVT and noncompliance of his medication. We talked to him at length at that time. He stated he did follow up with his hot dimpling machine operator regularly, so we placed him on Lovenox full dose and then transitioned to Coumadin. He was supposed to follow up with his hot dimpling machine operator and have his PT and INRs checked; however, he has been out of his Coumadin now for over 5 days. He went to see his hot dimpling machine operator, Dr. Hamm, today. His PT and INR were not therapeutic, so Dr. Hamm sent him to the ED for fluid volume overload, jugular vein distention, and to be placed back on full-dose Eliquis. Mr. Acharya does report that he weighed in the 180s and he is now up into the 190s, with his weight gain. It is just in both his lower extremities. It is not up into his abdomen as it has been in the past. His right lower extremely is profoundly swollen secondary to his untreated DVT and secondary to his noncompliance. We will continue with further treatment and evaluation. PAST MEDICAL HISTORY: Per HPI. PAST SURGICAL HISTORY: I and D of a spider bite. SOCIAL HISTORY: He lives in [place]. He has been out of work for some time now. He is single. He has stopped smoking a few weeks ago. He has stopped drinking last February. He has been worked up for disability. I do not believe he has finished the paperwork. He also needs to complete the work with Dr. Hamm's office, I believe for both Eliquis and Xarelto; I believe he qualifies for both and he has no income coming in. FAMILY HISTORY: Mother with hypertension. ALLERGIES: No known drug allergies. HOME MEDICATIONS: 1. Coreg 25 mg p.o. b.i.d. 2. Folic acid 1 mg p.o. daily. 3. Lasix 40 mg p.o. daily. 4. Apresoline 50 mg p.o. t.i.d. 5. Isordil 10 mg p.o. t.i.d. 6. Aldactone 25 mg p.o. b.i.d. 7. Coumadin 3 mg p.o. at bedtime. PHYSICAL EXAMINATION: VITAL SIGNS: Temperature is 97.7 degrees, heart rate 90, respirations 18, blood pressure 128/99, O2 is 98% on room air. GENERAL: Mr. Acharya is a 54-year-old gentleman who is lying on his right side on the stretcher, in no acute distress. HEENT: Atraumatic, normocephalic. PERRL. NECK: Supple. Trachea midline. CARDIOVASCULAR: S1, S2 appreciated. No murmurs, gallops, rubs noted. JVD is present. He does have bilateral lower extremity pitting edema, right greater than left, secondary to DVT. PULMONARY: Bilateral breath sounds are clear. GI: Soft, nontender, and nondistended. Positive bowel sounds, 4 quadrants. NEUROLOGIC: No focal deficits noted. DIAGNOSTIC DATA: Chest x-ray: Cardiomegaly, but no congestive heart failure. LABORATORY DATA: White count of 6, hemoglobin and hematocrit of 10 and 31, platelet count is 130,000. Sodium 138, potassium 4.0, BUN 25, creatinine 1.4, blood glucose of 99. T bilirubin 2.42. ProBNP is 6027. Albumin 3.3. ASSESSMENT AND PLAN: 1. Acute on chronic right lower extremity deep venous thrombosis, secondary to patient's noncompliance. He has been on Xarelto. He has been on full-dose Lovenox and on Coumadin. We will now put him on full-dose Eliquis. I spoke with Dr. Hamm's office. They do have samples waiting for him in his office at the time of discharge. We will get Roll Setter involved again for medication assistance. 2. Chronic systolic and diastolic heart failure with severe cardiomegaly, with an ejection fraction of 20%. We are going to initiate him on intravenous Lasix, possibly switch him back to his home Lasix in the a.m., and continue his Coreg. He does not appear to be as volume overloaded as he has been in the past; however, he does continue to have lower extremity swelling that appears to be chronic for him. He does report about a 10 pound weight gain. We will do strict inputs and outputs and daily weights. 3. Renal insufficiency. He is at his baseline. 4. Alcohol use in the past. He continues to be abstinent since last February. 5. Tobacco use. He did quit smoking a few weeks ago. Will continue encouragement of smoking cessation. 6. Hypertension. Will continue home medications. 7. Medical noncompliance, well known. The patient does continue to follow up regularly with Dr. Hamm. They have had free samples of Eliquis in the office for him as well as Xarelto; however, he just fails to pick it up at times. I believe he does qualify for disability. He just needs to finish the paperwork as well as continue to fill out paperwork to continue to get Eliquis as well as Xarelto for free. We will see if we can get Roll Setter or Case Management to help with this process, to help out with readmissions in the future, as well as some medication assistance. 8. Further recommendations to follow physician evaluation, laboratory and diagnostic data. Dictated by SHARON Lomas for Radha Ellison MD cc: MD Giles Cherry MD
[2019-07-21] MEDS: ALDACTONE PO SCH (21:34)
[2019-07-21] MEDS: ELIQUIS PO SCH (21:34)
[2019-07-21] MEDS: APRESOLINE PO SCH (21:34)
[2019-07-21] MEDS: LASIX IV SCH (21:35)
[2019-07-22 04:18] LABS: URINE SOURCE CLEAN CATCH
[2019-07-22 04:22] LABS: BILIRUBIN URINE NEGATIVE (NEGATIVE); BLOOD URINE NEGATIVE (NEGATIVE); COLOR YELLOW; GLUCOSE URINE NEGATIVE (NEGATIVE); KETONE URINE NEGATIVE (NEGATIVE); LEUKOCYTES URINE MODERATE (NEGATIVE); NITRITE URINE NEGATIVE (NEGATIVE); PH URINE 6.5; PROTEIN URINE 30 mg/dL (NEGATIVE); SP GRAVITY URINE 1.013; TURBIDITY URINE CLEAR (CLEAR); UROBILINOGEN URINE >12 mg/dL (NORMAL)
[2019-07-22 04:34] LABS: UR AMPHETAMINES QUAL NONE DETECTED (NONE DETECT); UR BARBITUATES QUAL NONE DETECTED (NONE DETECT); UR BENZODIAZEPIN QUAL NONE DETECTED (NONE DETECT); UR CANNABINOIDS QUAL NONE DETECTED (NONE DETECT); UR COCAINE QUAL NONE DETECTED (NONE DETECT); UR METHADONE QUAL NONE DETECTED (NONE DETECT); UR OPIATES QUAL NONE DETECTED (NONE DETECT); UR OXYCODONE QUAL NONE DETECTED (NONE DETECT); UR PCP QUAL NONE DETECTED (NONE DETECT)
[2019-07-22 04:38] LABS: UR EPITHELIAL CELLS <10 /HPF (<10); URINE BACTERIA NEGATIVE /HPF; URINE RBC <10 /HPF (<10); URINE WBC 20-40 /HPF (<10)
[2019-07-22 04:56] LABS: URINE CASTS NONE SEEN; URINE CRYSTALS NONE SEEN; URINE SMALL ROUND CELLS NONE SEEN; URINE YEAST PRESENT
--- NOTE | 2019-07-22 07:32 | Diag Imaging Result Doc PS360 ---
CHEST-PORTABLE - 07/22/2019 INDICATION: chf COMPARISON: 07/21/2019 FINDINGS: Stable moderate cardiomegaly. Lung volumes are severely low. There is bronchovascular crowding in the lung bases. No definite infiltrates or edema. IMPRESSION: Cardiomegaly. Severely low lung volumes. Electronically signed by Zachery Fisher 07/22/2019 7:30 AM
--- NOTE | 2019-07-22 07:50 | EKG Report ---
Test Performed on : 07/22/2019 07:28:06 AM Test Reason : Heart Failure Admission Blood Pressure : / mmHG Vent. Rate : 089 BPM Atrial Rate : 091 BPM P-R Int : 000 ms QRS Dur : 110 ms QT Int : 402 ms P-R-T Axes : 000 267 080 degrees QTc Int : 489 ms Atrial fibrillation. with premature ventricular or aberrantly conducted complexes. Incomplete right bundle branch block Right ventricular hypertrophy Inferior infarct (cited on or before 03-MAR-2018) Anterolateral infarct (cited on or before 03-MAR-2018) Abnormal ECG When compared with ECG of 11-JUL-2019 10:09, (Unconfirmed) No significant change was found Confirmed by Lj Perez MD ([id number]) on 07/22/2019 4:35:58 PM
[2019-07-22 08:13] LABS: HEMATOCRIT 28.2 % (42.0-52.0); HEMOGLOBIN 9.9 g/dL (14.0-18.0); MCH 27.6 PG (27-31); MCHC 35.1 g/dL (33-37); MCV 78.6 FL (81-99); MPV 11.5 FL (7.4-10.4); RBC 3.59 XMIL (4.7-6.1); RDW 18.7 % (11.5-14.5); WBC 5.37 X1000 (4.8-10.8)
[2019-07-22] MEDS: APRESOLINE PO SCH ×3 (08:29→20:12)
[2019-07-22] MEDS: ISORDIL PO SCH ×3 (08:29→16:41)
[2019-07-22] MEDS: ELIQUIS PO SCH ×2 (08:29→20:13)
[2019-07-22] MEDS: LASIX IV SCH ×2 (08:29→20:12)
[2019-07-22] MEDS: ALDACTONE PO SCH ×2 (08:29→20:13)
[2019-07-22] MEDS: FOLIC ACID PO SCH (08:29)
[2019-07-22 08:45] LABS: CHOLESTEROL 62 mg/dL (0-200); HDL 23 mg/dL (35-55); LDL 27 mg/dL; TRIGLYCERIDES 61 mg/dL (39-160); VLDL 12 mg/dL
[2019-07-22 08:54] LABS: AGAP 12; BUN 25 mg/dL (8-22); CALCIUM 8.1 mg/dL (8.8-10.2); CHLORIDE 102 mmol/L (98-107); COSMO 283; CREATININE 1.2 mg/dL (0.7-1.2); ESTIMATED GFR > 60; GLUCOSE 111 mg/dL (70-104); MAGNESIUM 1.4 mg/dL (1.5-2.7); POTASSIUM 3.3 mmol/L (3.5-5.1); SODIUM 139 mmol/L (136-145); TCO2 25 mmol/L (25-35)
[2019-07-22] MEDS ORDERED: POTASSIUM CHLORIDE 20% LIQUID PEG ONE (08:57)
[2019-07-22] MEDS ORDERED: MAGNESIUM SULFATE 2 GM/S.W.I. 2 GM/50 ML IVPB IV ONE ×2 (10:00→11:00)
[2019-07-22] MEDS ORDERED: KLOR-CON PO ONE (10:03)
--- NOTE | 2019-07-22 18:48 | PROGRESS NOTE ---
DATE: 07/22/2019 SUBJECTIVE: The patient is resting comfortably in bed. His legs are edematous. OBJECTIVE: Vital Signs: Temperature 98.2 degrees, blood pressure 95/69, heart rate 96, respirations 23. O2 saturations 100% on room air. General: This is a chronically ill-appearing elderly male lying in bed in no acute distress. Heart: S1, S2 normal. Regular rate and rhythm. Lungs: Equal air entry bilaterally. No crackles. No rales. Abdomen: Positive bowel sounds. Soft, nontender, nondistended. Extremities: 3+ edema to the lower extremities. Neurologic: The patient is alert and oriented x4. LABS: White blood cell count 5.3, hemoglobin 9.9, hematocrit 28, platelets 132,000. Sodium 139, potassium 3.3, creatinine 1.2, BUN 25, magnesium 1.4. ASSESSMENT AND PLAN: 1. Acute on chronic systolic congestive heart failure exacerbation. The patient is on diuretic therapy. We will also continue with the current cardiac medications. Cardiology has been consulted. 2. Acute on chronic right lower extremity deep vein thrombosis. The patient is on Eliquis. 3. Severe cardiomyopathy with an ejection fraction of 20%. Aware. 4. Liver cirrhosis. Aware. 5. Acute kidney injury on chronic kidney disease. Slightly improved today. We will continue to monitor closely while receiving diuretic therapy. 6. Medical noncompliance. Aware. 7. Hypomagnesemia. Will replace the magnesium. 8. Pulmonary hypertension. Aware. cc: Radha Ellison MD MTDD
--- NOTE | 2019-07-23 07:10 | Diag Imaging Result Doc PS360 ---
EXAM: CHEST-PORTABLE HISTORY: chf TECHNIQUE: Single view COMPARISON: 07/22/2019 FINDINGS: The lungs are well expanded. The heart is enlarged. The vessels are not distended. There are no infiltrates. No effusion identified. IMPRESSION: Cardiomegaly, but no pulmonary edema. Electronically signed by Cachorro Ríos 07/23/2019 7:07 AM
[2019-07-23 08:37] LABS: AGAP 13; BUN 25 mg/dL (8-22); CALCIUM 8.3 mg/dL (8.8-10.2); CHLORIDE 101 mmol/L (98-107); COSMO 280; CREATININE 1.4 mg/dL (0.7-1.2); ESTIMATED GFR > 60; GLUCOSE 89 mg/dL (70-104); SODIUM 138 mmol/L (136-145); TCO2 24 mmol/L (25-35)
[2019-07-23 08:58] LABS: ALBUMIN 3.4 g/dL (3.5-5.0); MAGNESIUM 1.5 mg/dL (1.5-2.7); PHOSPHORUS 3.1 mg/dL (2.7-4.5)
[2019-07-23 09:11] LABS: HEMATOCRIT 28.5 % (42.0-52.0); MCHC 35.1 g/dL (33-37); MCV 79.8 FL (81-99); MPV 11.6 FL (7.4-10.4); RBC 3.57 XMIL (4.7-6.1); RDW 18.7 % (11.5-14.5); WBC 6.37 X1000 (4.8-10.8)
[2019-07-23] MEDS: ISORDIL PO SCH ×2 (09:23→15:30)
[2019-07-23] MEDS: LASIX IV SCH ×2 (09:23→20:54)
[2019-07-23] MEDS: APRESOLINE PO SCH ×3 (09:23→20:19)
[2019-07-23] MEDS: ELIQUIS PO SCH ×2 (09:23→20:54)
[2019-07-23] MEDS: FOLIC ACID PO SCH (09:23)
[2019-07-23] MEDS: ALDACTONE PO SCH ×2 (09:23→20:53)
[2019-07-23] MEDS ORDERED: MAGNESIUM SULFATE 4 GM/S.W.I. 4 GM/100 ML IVPB IV ONE (09:45)
[2019-07-23] MEDS ORDERED: TESSALON PO ONE (10:13)
[2019-07-23] MEDS ORDERED: TUSSIONEX LIQUID PO ONE (10:14)
[2019-07-23] MEDS ORDERED: TUSSIONEX LIQUID PO PRN (10:14)
[2019-07-23] MEDS: TESSALON PO SCH ×2 (15:30→20:54)
--- NOTE | 2019-07-23 21:43 | PROGRESS NOTE ---
DATE: 07/23/2019 SUBJECTIVE: The patient is resting comfortably. He complains of persistent coughing. Otherwise, he states that the swelling is improving in his legs. OBJECTIVE: Vital Signs: Temperature 98.9, blood pressure 108/84, heart rate 111, respirations 19, O2 saturation 100% on room air. General: This is a uiyiqxnhqcz-sqh-vyderczbs elderly male lying in bed in no acute distress. Heart: S1, S2 normal. Tachycardic. Lungs: Equal air entry bilaterally. No wheezing. No rales. Abdomen: Positive bowel sounds. Soft, nontender, nondistended. Extremities: 3+ edema to the lower extremities. Neurologic: The patient is alert and oriented x4. LABS: White blood cell count 6.3, hemoglobin 10, hematocrit 28, platelets 152. Sodium 138, potassium 4, chloride 101. CO2 is 24, BUN 25, creatinine 1.4, glucose 89, albumin 3.4. Chest x-ray shows cardiomegaly. ASSESSMENT AND PLAN: 1. Acute on chronic systolic congestive heart failure exacerbation. Continue on the current diuretic regimen. Also, continue on Aldactone and Isordil. The patient may benefit from Entresto. Will defer to the plywood layup line core feeder regarding this medication. 2. Acute on chronic right lower extremity deep vein thrombosis. Continue on Eliquis. 3. Severe cardiomyopathy with ejection fraction of 20%. Aware. 4. Liver cirrhosis. Aware. 5. Acute kidney injury on chronic kidney disease. Continue to monitor closely while receiving diuretic therapy. 6. Medical noncompliance. The patient has been counseled about compliance with medications. 7. Hypomagnesemia. We will replace the patient's magnesium. 8. Pulmonary hypertension. Aware. 9. Anemia. Stable. cc: Radha Ellison MD [facility]
[2019-07-24 08:06] LABS: HEMATOCRIT 28.7 % (42.0-52.0); MCH 27.3 PG (27-31); MCHC 34.8 g/dL (33-37); MCV 78.4 FL (81-99); MPV 11.5 FL (7.4-10.4); RBC 3.66 XMIL (4.7-6.1); RDW 18.5 % (11.5-14.5); WBC 5.95 X1000 (4.8-10.8)
[2019-07-24 09:09] LABS: CALCIUM 8.7 mg/dL (8.8-10.2); CREATININE 1.5 mg/dL (0.7-1.2); POTASSIUM 3.8 mmol/L (3.5-5.1)
[2019-07-24] MEDS: ISORDIL PO SCH ×4 (09:30→20:44)
[2019-07-24] MEDS: ALDACTONE PO SCH ×2 (09:31→20:36)
[2019-07-24] MEDS: ELIQUIS PO SCH ×2 (09:31→20:45)
[2019-07-24] MEDS: FOLIC ACID PO SCH (09:31)
[2019-07-24] MEDS: APRESOLINE PO SCH ×3 (09:31→20:36)
[2019-07-24] MEDS: LASIX IV SCH ×2 (09:31→20:36)
[2019-07-24] MEDS: TESSALON PO SCH ×3 (09:31→20:36)
--- NOTE | 2019-07-24 20:08 | PROGRESS NOTE ---
DATE: 07/24/2019 SUBJECTIVE: The patient is resting comfortably in bed. He complains of a dry, hacking cough, but otherwise he has no other complaints. OBJECTIVE: Vital Signs: Temperature 98.3 degrees, blood pressure 101/71, heart rate 93, respirations 16, O2 saturations 100% on room air. General: This is a chronically ill-appearing elderly male lying in bed in no acute distress. Heart: S1, S2 normal. Tachycardic. Lungs: Equal air entry bilaterally. No wheezing. No rales. Abdomen: Positive bowel sounds. Soft, nontender, nondistended. Extremities: 3+ edema. Neurologic: The patient is alert and oriented x4. LABS: White blood cell count 5.9, hemoglobin 10, hematocrit 28, platelets 159,000. Sodium 137, potassium 3.8, chloride 100, CO2 24, BUN 25, creatinine 1.5. ASSESSMENT AND PLAN: 1. Acute on chronic systolic congestive heart failure exacerbation. Continue on the current diuretic regimen. Continue on Aldactone and Isordil. Further recommendations to follow from the technician preventative medicine. 2. Acute on chronic right lower extremity deep vein thrombosis. Continue on Eliquis. 3. Severe cardiomyopathy with an ejection fraction of 20%. Aware. 4. Liver cirrhosis. Aware. 5. Acute kidney injury on chronic kidney disease. Continue to monitor closely while on diuretic therapy. 6. Medical noncompliance. The patient has been counseled about medication compliance. 7. Pulmonary hypertension. Aware. 8. Anemia. Stable. cc: Radha Ellison MD
[2019-07-25 08:05] LABS: HEMATOCRIT 27.9 % (42.0-52.0); HEMOGLOBIN 9.8 g/dL (14.0-18.0); MCHC 35.1 g/dL (33-37); MCV 79.7 FL (81-99); MPV 10.9 FL (7.4-10.4); RBC 3.5 XMIL (4.7-6.1); RDW 18.5 % (11.5-14.5); WBC 6.33 X1000 (4.8-10.8)
[2019-07-25 08:41] LABS: CALCIUM 8.6 mg/dL (8.8-10.2); CREATININE 1.6 mg/dL (0.7-1.2); POTASSIUM 4.1 mmol/L (3.5-5.1)
--- NOTE | 2019-07-25 08:54 | Diag Imaging Result Doc PS360 ---
EXAM: CHEST-2 VIEWS INDICATION: chf TECHNIQUE: 3 views COMPARISON: 07/23/2019 FINDINGS: The lungs are grossly clear. There is no discrete pleural fluid collection or pneumothorax. There is stable cardiomegaly. Central vasculature is unremarkable. IMPRESSION: Stable cardiomegaly. No definite acute chest pathology by plain radiograph. Electronically signed by Alvarez Romero 07/25/2019 8:52 AM
[2019-07-25] MEDS: ISORDIL PO SCH ×3 (09:58→20:58)
[2019-07-25] MEDS: ALDACTONE PO SCH ×2 (09:58→20:58)
[2019-07-25] MEDS: LASIX IV SCH ×2 (09:58→21:06)
[2019-07-25] MEDS: FOLIC ACID PO SCH (09:58)
[2019-07-25] MEDS: APRESOLINE PO SCH ×3 (09:58→20:58)
[2019-07-25] MEDS: ELIQUIS PO SCH ×2 (09:58→20:57)
[2019-07-25] MEDS: TESSALON PO SCH ×3 (09:58→20:57)
[2019-07-25] MEDS ORDERED: ZAROXOLYN PO ONE (13:26)
--- NOTE | 2019-07-25 14:23 | PROGRESS NOTE ---
DATE: 07/25/2019 SUBJECTIVE: Patient denies shortness of breath or chest discomfort. He continues on room air. OBJECTIVE: Vital Signs: Blood pressure 124/86, heart rate 80, oxygen saturation 98 to 99 percent on room air. Neck: Jugular venous distention is present suggesting significantly elevated central venous pressure. Chest: Clear to auscultation bilaterally. Cardiac Exam: Reveals a regular rate and rhythm without appreciable gallop. Extremities: Demonstrate moderate low pretibial edema, right greater than left. Significantly improved compared to late last week. LABORATORY DATA: Includes a white blood cell count of 6.33, hematocrit 27.9, hemoglobin 9.8, platelet count 162. Sodium 137, potassium 4.1, chloride 98, carbon dioxide 22. BUN 29, creatinine 1.6, glucose 79. IMPRESSION: 1. Acute on chronic systolic heart failure, right greater than left. Patient improving with diuresis. This still demonstrates evidence of significant volume overload. 2. Severe cardiomyopathy. 3. Recent deep vein thrombosis, right lower extremity. 4. Apical thrombus. RECOMMENDATIONS: 1. Will gently increase IV Lasix and give dose of metolazone 5 mg p.o. daily. 2. Promote further diuresis. 3. Continue anticoagulation with Eliquis. cc: Giles Hamm MD
[2019-07-25 15:33] LABS: URINE SOURCE CLEAN CATCH
[2019-07-25 15:36] LABS: BILIRUBIN URINE NEGATIVE (NEGATIVE); BLOOD URINE NEGATIVE (NEGATIVE); COLOR YELLOW; GLUCOSE URINE NEGATIVE (NEGATIVE); KETONE URINE NEGATIVE (NEGATIVE); LEUKOCYTES URINE NEGATIVE (NEGATIVE); NITRITE URINE NEGATIVE (NEGATIVE); PH URINE 6.5; PROTEIN URINE TRACE mg/dL (NEGATIVE); SP GRAVITY URINE 1.009; TURBIDITY URINE CLEAR (CLEAR); UROBILINOGEN URINE 6 mg/dL (NORMAL)
[2019-07-25 15:38] LABS: UR EPITHELIAL CELLS <10 /HPF (<10); URINE BACTERIA NEGATIVE /HPF; URINE RBC <10 /HPF (<10); URINE WBC <10 /HPF (<10)
--- NOTE | 2019-07-25 19:07 | PROGRESS NOTE ---
DATE: 07/25/2019 SUBJECTIVE: The patient is resting comfortably in bed. He complains of a dry, hacking cough. He states that he feels that the swelling in his legs is getting better. He is having regular bowel movements. OBJECTIVE: Vital Signs: Temperature 97.9 degrees, blood pressure 101/88, heart rate 62, respirations 24, O2 saturation is 100% on room air. Intake 800. Output 850. General: This is a chronically ill-appearing, elderly male lying in bed, in no acute distress. Heart: S1, S2 normal. Regular rate and rhythm. Lungs: Clear to auscultation bilaterally. No wheezing. No rales. Abdomen: Positive bowel sounds. Soft, nontender, nondistended. Extremities: Have 2+ edema bilaterally, right greater than left. Neurologic: The patient is alert and oriented x4. No focal neurologic deficits noted. LABS: White blood cell count 6.3, hemoglobin 9.8, hematocrit 27, platelets 162,000. Sodium 137, potassium 4.1, chloride 98, CO2 22, BUN 29, creatinine 1.6, glucose 79. ProBNP 10,751. ASSESSMENT AND PLAN: 1. Acute on chronic systolic congestive heart failure exacerbation. The patient's diuretic dosage has been increased. Management as per the candy butcher. 2. Acute on chronic right lower extremity deep vein thrombosis. Continue on Eliquis. 3. Severe cardiomyopathy with an ejection fraction of 20%. Aware. 4. Liver cirrhosis. Aware. 5. Acute kidney injury on chronic kidney disease. This is likely secondary to diuretic usage. We will monitor the patient's renal function closely while receiving diuretics. 6. Medical noncompliance. The patient has been counseled about being compliant with his medications. 7. Pulmonary hypertension. Aware. 8. Anemia. Stable. cc: Radha Ellison MD MTDD
[2019-07-25 21:23] LABS: UR CREAT RANDOM 30.6 mg/dL (14-26); UR PROT RANDOM 22.1 mg/dL
[2019-07-26] MEDS ORDERED: LOPRESSOR IV ONE (01:28)
--- NOTE | 2019-07-26 01:31 | EKG Report ---
Test Performed on : 07/26/2019 01:17:20 AM Test Reason : New onset A-Fib Blood Pressure : / mmHG Vent. Rate : 108 BPM Atrial Rate : 079 BPM P-R Int : 000 ms QRS Dur : 108 ms QT Int : 392 ms P-R-T Axes : 000 262 070 degrees QTc Int : 525 ms Atrial fibrillation. with rapid ventricular response. with premature ventricular or aberrantly conduc elzbieta complexes. Right superior axis deviation Incomplete right bundle branch block Right ventricular hypertrophy Inferior infarct (cited on or before 03-MAR-2018) Anterior infarct (cited on or before 03-MAR-2018) Prolonged QT Abnormal ECG When compared with ECG of 22-JUL-2019 07:28, No significant change was found Confirmed by Lj Perez MD ([id number]) on 07/26/2019 1:05:24 PM
[2019-07-26] MEDS: TESSALON PO SCH ×3 (08:58→20:56)
[2019-07-26] MEDS: APRESOLINE PO SCH ×3 (08:58→20:56)
[2019-07-26] MEDS: COREG PO SCH ×2 (08:58→20:56)
[2019-07-26] MEDS: FOLIC ACID PO SCH (08:58)
[2019-07-26] MEDS: ELIQUIS PO SCH ×2 (08:58→20:56)
[2019-07-26] MEDS: ALDACTONE PO SCH ×2 (08:58→20:56)
[2019-07-26] MEDS: LASIX IV SCH ×2 (08:59→20:54)
[2019-07-26 09:46] LABS: CALCIUM 9.1 mg/dL (8.8-10.2); CREATININE 1.7 mg/dL (0.7-1.2); POTASSIUM 3.5 mmol/L (3.5-5.1)
[2019-07-26 10:00] LABS: MAGNESIUM 1.6 mg/dL (1.5-2.7); PHOSPHORUS 4.1 mg/dL (2.7-4.5)
[2019-07-26] MEDS: ISORDIL PO SCH ×3 (10:00→20:56)
[2019-07-26] MEDS ORDERED: KLOR-CON PO ONE (12:15)
[2019-07-26] MEDS: MAGNESIUM SULFATE 2 GM/S.W.I. 2 GM/50 ML IVPB IV SCH ×2 (13:21→16:14)
--- NOTE | 2019-07-27 00:38 | PROGRESS NOTE ---
DATE: 07/26/2019 INTERVAL HISTORY: No acute events overnight. Mr. Acharya is denying any chest pain or shortness of breath. He continues to have some pain in the right lower extremity which is, in fact, marked in both of the lower extremities, more pronounced on the right. PHYSICAL EXAMINATION: Vital signs: Temperature 98 degrees, pulse 87, respiratory rate 18, blood pressure 110/60, saturation 99 percent on room air. Input and output suggests -1.2 L so far. HEENT: Oral cavity is moist. Lungs: Air entry bilaterally equal. No wheeze or crackles. Cardiovascular: S1 normal. No gallop. Abdomen: Soft, nontender. Extremities: He has bilateral lower extremity edema, more prominent on the right than the left. He is alert and oriented x3. LABS: Suggestive of hemoglobin of 9.8. BUN 31, creatinine 1.7. Microbiology: No data. No new imaging. ASSESSMENT AND PLAN: 1. Acute on chronic systolic congestive heart failure exacerbation with history of alcoholic dilated nonischemic cardiomyopathy with ejection fraction of 20%. Continue intravenous diuretic as per Cardiology team. I will also continue his home medications of carvedilol, hydralazine and isosorbide, along with spironolactone. He received a dose of oral metolazone yesterday. 2. Recurrent right lower extremity deep venous thrombosis. He has been started on high dose of Eliquis and will continue that. 3. Acute kidney injury on chronic kidney disease stage 2 to stage 3A, likely because of diuretic. I will follow up with BMP tomorrow. 4. He also has medical noncompliance and pulmonary hypertension, and his anemia appears to be stable. I will follow up with CBC tomorrow. DISPOSITION: Continue patient to monitor inside the hospital. My plan is to change his Lasix to oral in next 24 hours. Plan of care discussed with him. All of his questions have been answered. cc: Iftikhar Aguilar MD
--- NOTE | 2019-07-27 08:07 | EKG Report ---
Test Performed on : 07/27/2019 07:07:26 AM Test Reason : Follow up AFib Blood Pressure : / mmHG Vent. Rate : 095 BPM Atrial Rate : 064 BPM P-R Int : 000 ms QRS Dur : 112 ms QT Int : 428 ms P-R-T Axes : 000 260 103 degrees QTc Int : 537 ms Atrial fibrillation. with premature ventricular or aberrantly conducted complexes. Right superior axis deviation Inferior infarct (cited on or before 03-MAR-2018) Anterior infarct (cited on or before 03-MAR-2018) Prolonged QT Abnormal ECG When compared with ECG of 26-JUL-2019 01:17, Nonspecific T wave abnormality, worse in Lateral leads Confirmed by Chris LUIS, Lj Pimentel ([id number]) on 07/27/2019 8:32:44 AM
[2019-07-27 08:28] LABS: BASO# 0.02 X1000 (0.0-0.2); BASO% 0.4 % (0.0-0.8); EOS# 0.05 X1000 (0.0-0.7); HEMATOCRIT 27.7 % (42.0-52.0); HEMOGLOBIN 9.5 g/dL (14.0-18.0); LYMPH# 1.29 X1000 (1.2-3.4); LYMPH% 26.8 % (20.5-51.1); MCH 27.2 PG (27-31); MCHC 34.3 g/dL (33-37); MCV 79.4 FL (81-99); MONO# 0.33 X1000 (0.11-0.59); MONO% 6.9 % (1.7-9.3); MPV 11.3 FL (7.4-10.4); NEUT# 3.12 X1000 (1.4-6.5); NEUT% 64.9 % (42.2-75.2); PLT 152 X1000 (130-400); RBC 3.49 XMIL (4.7-6.1); RDW 18.5 % (11.5-14.5); WBC 4.81 X1000 (4.8-10.8)
[2019-07-27 08:43] LABS: CALCIUM 8.7 mg/dL (8.8-10.2); CREATININE 1.6 mg/dL (0.7-1.2); POTASSIUM 3.2 mmol/L (3.5-5.1)
[2019-07-27] MEDS: COREG PO SCH ×2 (09:40→21:29)
[2019-07-27] MEDS: FOLIC ACID PO SCH (09:40)
[2019-07-27] MEDS: ALDACTONE PO SCH ×2 (09:40→21:29)
[2019-07-27] MEDS: ISORDIL PO SCH ×3 (09:40→21:29)
[2019-07-27] MEDS: ELIQUIS PO SCH ×2 (09:40→21:29)
[2019-07-27] MEDS: TESSALON PO SCH ×3 (09:40→21:29)
[2019-07-27] MEDS: APRESOLINE PO SCH ×3 (09:41→21:28)
[2019-07-27] MEDS: LASIX IV SCH ×2 (09:41→21:27)
[2019-07-27] MEDS ORDERED: LANOXIN IV ONE (17:08)
[2019-07-27] MEDS ORDERED: ZAROXOLYN PO ONE (17:08)
[2019-07-27] MEDS: KLOR-CON PO SCH ×2 (19:00→21:38)
--- NOTE | 2019-07-27 20:42 | PROGRESS NOTE ---
DATE: 07/27/2019 SUBJECTIVE: Patient continues without chest discomfort or shortness of breath on room air. He continues to diurese with IV Lasix. OBJECTIVE: Blood pressure 119/78, heart rate 80 with ECG monitor showing atrial fibrillation with controlled rate. Oxygen saturation 100% on room air.Neck: Jugular venous distention is present consistent with moderately elevated central venous pressure. Chest: Clear to auscultation bilaterally. Cardiac Exam: Reveals an irregular rate and rhythm without appreciable murmur or gallop. Extremities: Demonstrate 1+ to 2+ edema in distal right lower extremity. 1+ edema in distal left lower extremity. LABORATORY DATA: Includes a white blood cell count of 4.1, hematocrit 27.7, hemoglobin 9.5, platelet count 152,000, sodium 135, potassium 3.2, chloride 95, carbon dioxide 26, BUN 31, creatinine 1.6. Glucose 140. IMPRESSION: 1. Acute on chronic systolic heart failure, predominantly right-sided, improved with diuresis. Patient still manifests some evidence of volume overload. 2. Severe cardiomyopathy. 3. Atrial fibrillation. 4. Recent deep vein thrombosis, right lower extremity. 5. Apical thrombus. RECOMMENDATIONS: 1. Continue IV Lasix for diuresis. 2. Some recent tachycardia in response to atrial fibrillation noted as patient ambulated. We will add digoxin. 3. Continue anticoagulation with Eliquis. 4. Consider possible transition to oral Lasix tomorrow afternoon. cc: Giles Hamm MD
--- NOTE | 2019-07-27 22:11 | PROGRESS NOTE ---
DATE: 07/27/2019 INTERVAL HISTORY: He developed atrial fibrillation with a rapid ventricular response, for which he was given intravenous digoxin by the Cardiology team. His electrocardiogram performed in the morning time did have atrial fibrillation with a heart rate of 95. Currently, he denies any new complaints. He has been making good amounts of urine. VITALS: Temperature 98.5, pulse 80, respiratory blood pressure 24, blood pressure 108/78, saturating 100% on room air. PHYSICAL EXAMINATION: General: Not in acute distress. HEENT: Oral cavity is moist. Lungs: Air entry bilaterally equal. No wheeze or crackles. Cardiac: S1, S2 normal. No murmur, rub or gallop. Abdomen: Soft, nontender. Neck: He does have elevated jugular venous pressure. Extremities: He has bilateral lower extremity edema, more pronounced on the right than on the left. He is alert and oriented x3. LABS: Suggestive of hemoglobin of 9.5, platelets of 152. Sodium of 135, potassium 3.2, BUN of 31, creatinine 1.6. Microbiology: No new data. No new imaging. ASSESSMENT AND PLAN: 1. Acute on chronic systolic congestive heart failure exacerbation with history of alcoholic dilated nonischemic cardiomyopathy with an ejection fraction of 20%. Continue intravenous diuretics, carvedilol, hydralazine, isosorbide and spironolactone. He has been receiving intermittent metolazone 2. Recurrent right lower extremity deep venous thrombosis due to medication noncompliance. Continue Eliquis. 3. Atrial fibrillation with rapid ventricular response. He is on Eliquis for anticoagulation and has been started on digoxin by the Cardiology team. 4. Acute kidney injury on chronic kidney disease stage 2 to stage 3A, currently stable. I will follow up with electrolytes and replete his potassium for hypokalemia. 5. Others. He does have history of pulmonary hypertension and chronic anemia. I will continue to monitor him. DISPOSITION: Monitor patient inside the hospital, as he is still needing intravenous diuretics. Appreciate Cardiology recommendations. cc: Iftikhar Aguilar MD
[2019-07-28] MEDS: LASIX IV SCH ×3 (08:11→21:41)
[2019-07-28 08:43] LABS: AGAP 14; BUN 35 mg/dL (8-22); CALCIUM 8.8 mg/dL (8.8-10.2); CHLORIDE 96 mmol/L (98-107); COSMO 280; CREATININE 1.4 mg/dL (0.7-1.2); ESTIMATED GFR > 60; GLUCOSE 130 mg/dL (70-104); MAGNESIUM 1.8 mg/dL (1.5-2.7); POTASSIUM 3.9 mmol/L (3.5-5.1); SODIUM 135 mmol/L (136-145); TCO2 25 mmol/L (25-35)
[2019-07-28] MEDS: APRESOLINE PO SCH ×4 (10:11→21:42)
[2019-07-28] MEDS: FOLIC ACID PO SCH ×2 (10:12→10:21)
[2019-07-28] MEDS: LANOXIN PO SCH ×2 (10:14→10:21)
[2019-07-28] MEDS: ELIQUIS PO SCH ×2 (10:20→21:42)
[2019-07-28] MEDS: ISORDIL PO SCH ×3 (10:21→21:42)
[2019-07-28] MEDS: ALDACTONE PO SCH ×2 (10:21→21:42)
[2019-07-28] MEDS: COREG PO SCH ×2 (10:21→21:42)
[2019-07-28] MEDS: TESSALON PO SCH ×3 (10:22→21:42)
--- NOTE | 2019-07-28 18:32 | PROGRESS NOTE ---
DATE: 07/28/2019 SUBJECTIVE: Patient denies shortness of breath or chest discomfort on room air. OBJECTIVE: Blood pressure 102/74, heart rate 100 and irregular with ECG monitor showing atrial fibrillation. Oxygen saturation 100%.Neck: Jugular distention is present suggesting mild-to- moderate elevation in central venous pressure. Chest: Clear to auscultation bilaterally. Cardiac Exam: Reveals an irregular rate and rhythm without appreciable murmur or gallop. Extremities: Demonstrate mild distal lower extremity edema, right greater than left. LABORATORY DATA: Includes sodium 135, potassium 3.9, chloride 96, carbon dioxide 25, BUN 35, creatinine 1.4, glucose 130. IMPRESSION: 1. Acute on chronic systolic heart failure, predominantly right-sided, improving with diuresis. 2. Severe cardiomyopathy. 3. Atrial fibrillation. 4. Recent deep vein thrombosis, right lower extremity. 5. Apical thrombus. RECOMMENDATIONS: 1. Continue IV Lasix today and transition to oral Lasix tomorrow. 2. Continue current cardiovascular regimen otherwise unchanged. 3. Continue to anticoagulate with Eliquis. 4. Reasonable to consider discharge tomorrow p.m. if clinical improvement maintained. We will see him for followup approximately 2 weeks after discharge. cc: Giles Hamm MD
--- NOTE | 2019-07-28 20:39 | PROGRESS NOTE ---
DATE: 07/28/2019 INTERVAL HISTORY: He had an episode of atrial fibrillation yesterday which responded well to digoxin. SUBJECTIVE: Mr. Acharya denies any complaints. He states he was able to walk in the room without any trouble. We discussed about his cardiomyopathy. We discussed about his heart failure medication regimen. VITALS: Temperature of 98.9 degrees, pulse of 77, respirations 14, blood pressure 102/74. He is saturating 100% on room air. The patient denies any chest pain, shortness of breath. PHYSICAL EXAMINATION: Oral cavity: Moist. There is some tobacco pigmentation on the soft palate. Lungs: Air entry bilaterally equal. No wheeze, rhonchi, crackles. Cardiovascular: S1, S2 normal. No murmur, rub or gallop. He does have displacement of ventricular apex base towards left. Abdomen: Soft, nontender. Lower Extremities: He has decreasing edema of bilateral lower extremities. LABORATORY: No CBC today. BMP suggestive of sodium of 135, and chloride of 96, BUN 35, creatinine 1.4. His magnesium is 1.8. ASSESSMENT AND PLAN: 1. Acute on chronic systolic congestive heart failure exacerbation with history of alcoholic dilated nonischemic cardiomyopathy with an ejection fraction of 20%. Transition from intravenous to oral diuretics. Continue carvedilol, hydralazine, isosorbide and spironolactone. 2. Recurrent right lower extremity deep venous thrombosis due to medication noncompliance. Continue Eliquis. 3. Atrial fibrillation with rapid ventricular rate. Continue current dose of digoxin and Eliquis. 4. Acute kidney injury on chronic kidney disease stage 2 to stage 3, likely because of Lasix. Currently stable. His hypokalemia has resolved. 5. Others. He does have history of pulmonary hypertension and chronic anemia. I will continue to monitor him. 6. Disposition. Likely discharge tomorrow. cc: Iftikhar Aguilar MD
[2019-07-29] MEDS: APRESOLINE PO SCH ×3 (08:11→20:56)
[2019-07-29] MEDS: FOLIC ACID PO SCH (08:11)
[2019-07-29] MEDS: LANOXIN PO SCH (08:11)
[2019-07-29] MEDS: ALDACTONE PO SCH ×2 (08:11→20:56)
[2019-07-29] MEDS: ISORDIL PO SCH ×3 (08:11→20:56)
[2019-07-29] MEDS: COREG PO SCH ×2 (08:11→20:56)
[2019-07-29] MEDS: LASIX PO SCH ×2 (08:11→20:55)
[2019-07-29] MEDS: TESSALON PO SCH ×3 (08:11→20:55)
[2019-07-29] MEDS: ELIQUIS PO SCH ×2 (08:11→20:55)
[2019-07-29 08:47] LABS: AGAP 14; BUN 33 mg/dL (8-22); CHLORIDE 95 mmol/L (98-107); COSMO 280; CREATININE 1.3 mg/dL (0.7-1.2); ESTIMATED GFR > 60; GLUCOSE 82 mg/dL (70-104); POTASSIUM 3.7 mmol/L (3.5-5.1); SODIUM 137 mmol/L (136-145); TCO2 28 mmol/L (25-35)
--- NOTE | 2019-07-29 14:10 | PROGRESS NOTE ---
DATE: 07/29/2019 SUBJECTIVE: The patient denies shortness of breath on room air. There has been no chest pain. OBJECTIVE: Vital Signs: Blood pressure 112/86, heart rate 79, oxygen saturation 100%. Neck: Jugular venous pressure appears to be normal based on inspection of the neck veins. Chest: Clear to auscultation bilaterally. Cardiac: Exam reveals an irregular rate and rhythm without appreciable murmur, rub, or gallop. Extremities: Demonstrate very mild edema of the distal right lower extremity and no edema on the left. LABORATORY DATA: Includes sodium 137, potassium 3.7, chloride 95, carbon dioxide 28, BUN 33, creatinine 1.3, glucose 82. IMPRESSION: 1. Acute on chronic systolic heart failure, predominantly right sided. There appears to have been some associated cardiorenal syndrome. Patient improved with diuresis. 2. Severe cardiomyopathy with apical thrombus. 3. Atrial fibrillation. 4. Right lower extremity deep vein thrombosis. RECOMMENDATIONS: 1. Transition to oral Lasix. 2. Continue current cardiovascular regimen, otherwise unchanged. 3. Continue anticoagulation with Eliquis. The patient to obtain samples from our office and apply for assistance program. I have samples of Eliquis set aside for when he goes home. 4. Once the patient is discharged, I will be glad to see him again in approximately 2 weeks. cc: Giles Hamm MD
--- NOTE | 2019-07-29 19:14 | PROGRESS NOTE ---
DATE: 07/29/2019 INTERVAL HISTORY: No acute events overnight. Mr. Acharya is feeling fine. He states he is feeling stronger. He has been able to walk in the hallway, though he is not completely there, and his swelling in the right lower extremity is still there. OBJECTIVE: Vitals: Temperature 97.5 degrees, pulse 83, respiratory rate 18, blood pressure 95/74. He is saturating 100% room air. General: Not in acute distress. HEENT: Oral cavity is moist. Lungs: Air entry bilaterally equal. No wheeze or crackles. Cardiovascular: S1, S2 normal. No murmur or gallop. Abdomen: Soft, nontender. He has significant reduction in bilateral lower extremity edema. He is alert and oriented x3. LABORATORY DATA: No CBC today. BMP suggestive of potassium of 3.7. His proBNP has decreased from 10,000 to 2900. ASSESSMENT AND PLAN: 1. Acute on chronic systolic congestive heart failure exacerbation with history of alcoholic dilated nonischemic cardiomyopathy and ejection fraction of 20%. Continue oral Lasix, carvedilol, hydralazine, isosorbide and spironolactone. 2. Recurrent right lower extremity deep venous thrombosis involving popliteal and posterior tibial vein. Continue current dose of apixaban. 3. Atrial fibrillation with rapid ventricular response. Continue digoxin and Eliquis. 4. Acute kidney injury on chronic kidney disease stage 2 to stage 3, currently stable. 5. Others. He does have history of pulmonary hypertension and chronic anemia. DISPOSITION: Patient is medically ready to be discharged; however, Mr. Acharya does not want to go home. He states he is still feeling weak, and he wants to stay back in the hospital until he becomes strong enough though he does not need any physical therapy since he has been able to come out of bed and walk by himself. I explained to him that this could be done at home, but he is still persisted on being in the hospital with this over the weekend. cc: Iftikhar Aguialr MD
[2019-07-30 08:04] LABS: CALCIUM 9.3 mg/dL (8.8-10.2); CREATININE 1.5 mg/dL (0.7-1.2); MAGNESIUM 1.7 mg/dL (1.5-2.7); POTASSIUM 3.7 mmol/L (3.5-5.1)
[2019-07-30] MEDS: ISORDIL PO SCH ×3 (08:57→20:56)
[2019-07-30] MEDS: LASIX PO SCH (08:57)
[2019-07-30] MEDS: ELIQUIS PO SCH ×2 (08:57→20:56)
[2019-07-30] MEDS: APRESOLINE PO SCH ×3 (08:57→20:54)
[2019-07-30] MEDS: COREG PO SCH ×2 (08:58→20:54)
[2019-07-30] MEDS: ALDACTONE PO SCH ×2 (08:58→20:53)
[2019-07-30] MEDS: TESSALON PO SCH ×3 (08:58→20:56)
[2019-07-30] MEDS: FOLIC ACID PO SCH (08:58)
[2019-07-30] MEDS: LANOXIN PO SCH (08:58)
--- NOTE | 2019-07-30 13:18 | PROGRESS NOTE ---
DATE: 07/30/2019 SUBJECTIVE: Patient denies shortness of breath or chest discomfort. He noted some mild lightheadedness when he was up ambulating earlier. OBJECTIVE: Vital Signs: Blood pressure 116/75, heart rate 81 and irregular, oxygen saturation 100% on room air. Neck: There is no significant jugular venous distention. Chest: Clear to auscultation. Cardiac Exam: Reveals an irregular rate and rhythm without appreciable murmur or gallop. Extremities: Demonstrate trace edema in distal right lower extremity with no edema in the distal left lower extremity. LABORATORY DATA: 1. Includes a sodium 137, potassium 3.7, chloride 94, carbon dioxide 27. 2. BUN 40, creatinine 1.5, glucose 132, magnesium 1.7. IMPRESSION: 1. Acute on chronic systolic heart failure, predominantly right-sided with associated cardiorenal syndrome and probable hepatic congestion. He is improved with diuresis. He may be a little on the intravascularly volume depleted side today. 2. Severe cardiomyopathy with apical thrombus. 3. Atrial fibrillation. 4. Right lower extremity deep vein thrombosis. RECOMMENDATIONS: 1. Continue Lasix 80 mg p.o. q.a.m. 2. Continue current cardiovascular regimen, otherwise unchanged. 3. Continue anticoagulation with Eliquis 5 mg p.o. b.i.d. Samples have been brought from the office, and we will make arrangements for him to be enrolled in the assistance program once he returns for follow up. 4. Reasonable for patient to be discharged soon. I will be glad to see him again in approximately 2 weeks. cc: Giles Hamm MD
--- NOTE | 2019-07-30 17:07 | PROGRESS NOTE ---
DATE: 07/30/2019 INTERVAL HISTORY: No acute events overnight. SUBJECTIVE: Mr. Acharya denies any chest pain, shortness of breath, or cough. He, however, states that he does become a little dizzy when he walks. However, I encouraged him to walk and continue physical activity. OBJECTIVE: vital signs: Temperature of 98.3 degrees, pulse 90, respiratory 18, blood pressure 103/75. He is saturating 100% room air. Not in acute distress. Oral cavity is moist. Air entry bilaterally equal. No wheeze, rhonchi, crackles. S1, S2 normal. No murmur or gallop. Soft, nontender. No lower extremity edema. He is alert and oriented x3. LABORATORY AND DIAGNOSTIC DATA: Labs suggestive of potassium of 3.7, BUN of 40, creatinine of 1.5. His proBNP has decreased from 10,000 on presentation to 1999. Microbiology, no new data. No new imaging. ASSESSMENT: 1. Acute on chronic systolic congestive heart failure exacerbation with history of nonischemic cardiomyopathy with ejection fraction of 20%. 2. Recurrent right lower extremity acute deep venous thrombosis involving popliteal and posterior tibial vein. 3. History of atrial fibrillation with rapid ventricular response. 4. Acute kidney injury on chronic kidney disease stage 2 to stage 3. 5. History of pulmonary hypertension and chronic anemia. PLAN: Continue oral Lasix, hydralazine, isosorbide, spironolactone, and carvedilol. He is also on digoxin and apixaban. The patient is medically ready to be discharged. However, the patient states that he wanted to stay back so that he could inform his sister who lives in [place] who could come by to pick him up, so he states he will go tomorrow morning. cc: Iftikhar Aguilra MD
[2019-07-31] MEDS ORDERED: LASIX PO SCH (09:00)
[2019-07-31] MEDS: ALDACTONE PO SCH ×2 (10:43→21:30)
[2019-07-31] MEDS: ELIQUIS PO SCH ×2 (10:43→21:30)
[2019-07-31] MEDS: FOLIC ACID PO SCH (10:43)
[2019-07-31] MEDS: TESSALON PO SCH ×3 (10:43→21:30)
[2019-07-31] MEDS: APRESOLINE PO SCH ×3 (10:43→21:30)
[2019-07-31] MEDS: ISORDIL PO SCH ×3 (10:44→21:30)
[2019-07-31] MEDS: LANOXIN PO SCH (10:44)
[2019-07-31] MEDS: COREG PO SCH ×2 (10:46→21:30)
[2019-07-31 19:04] LABS: CALCIUM 9.1 mg/dL (8.8-10.2)
--- NOTE | 2019-07-31 20:22 | PROGRESS NOTE ---
DATE: 07/31/2019 INTERVAL HISTORY: No acute events overnight. SUBJECTIVE: Mr. Acharya denies new complaints. VITALS: Temperature 98 degrees, pulse 80, respiratory rate 20, blood pressure 108/83, saturating 99% room air. PHYSICAL EXAMINATION: Not in acute distress.HEENT: Oral cavity is moist. Lungs: Air entry bilaterally equal no wheezes, rhonchi or crackles, Heart: S1, S2 normal. No murmur, rub, or gallop. Abdomen: Soft, nontender. Extremity: No lower extremity edema. Neurologic: He is alert and oriented x3. LABS: Suggestive of increase in BUN and creatinine. No new microbiological data. No new imaging. ASSESSMENT AND PLAN: 1. Acute on chronic systolic congestive heart failure exacerbation with nonischemic cardiomyopathy with ejection fraction of 20%. 2. Recurrent right lower extremity acute deep vein thrombosis of popliteal posterior tibial vein. 3. History of atrial fibrillation with rapid ventricular rate. 4. Acute kidney injury on chronic kidney disease stage 3, due to Lasix use. 5. History of pulmonary hypertension and chronic anemia. PLAN: I am holding his Lasix dose for tomorrow and decrease the Lasix dose starting the next day. I will continue his home hydralazine, isosorbide, spironolactone, and carvedilol. He is also on digoxin, apixaban for atrial fibrillation and DVT. He would likely need outpatient titration of his medications based on his blood pressure and kidney function. He may also need addition of ALMA inhibitors. Plan of care discussed with the patient. His questions have been answered. cc: Iftikhar Aguilar MD
[2019-08-01 07:32] VITALS: BP 105/77
[2019-08-01] MEDS: ISORDIL PO SCH (09:26)
[2019-08-01] MEDS: ALDACTONE PO SCH (09:27)
[2019-08-01] MEDS: LANOXIN PO SCH (09:27)
[2019-08-01] MEDS: TESSALON PO SCH ×2 (09:27→13:08)
[2019-08-01] MEDS: COREG PO SCH (09:27)
[2019-08-01] MEDS: FOLIC ACID PO SCH (09:27)
[2019-08-01] MEDS: ELIQUIS PO SCH (09:27)
[2019-08-01] MEDS: APRESOLINE PO SCH ×2 (09:27→13:08)
--- NOTE | 2019-08-01 15:23 | DISCHARGE SUMMARY ---
ADMISSION DATE: 07/21/2019 DISCHARGE DATE: 08/01/2019 DISCHARGE DISPOSITION: Home. DISCHARGE CONDITION: Hemodynamically stable. Mr. Acharya is breathing well on room air. He has been -15 L since presentation. He is able to walk in the hallway without any difficulty. environmental services aide program referral has been provided to him to get his medications free of cost. DISCHARGE DIAGNOSES: 1. Acute on chronic systolic congestive heart failure exacerbation due to medication and dietary noncompliance. 2. History of nonischemic cardiomyopathy with ejection fraction of 20%. 3. Recurrent right lower extremity deep venous thrombosis involving acute deep venous thrombosis of popliteal and posterior tibial vein. 4. Atrial fibrillation with rapid ventricular response. 5. Acute kidney injury on chronic kidney disease stage 2 to stage 3 due to diuretic use. 6. Hypokalemia. OTHER DIAGNOSES: 1. History of medical noncompliance. 2. History of tobacco abuse. 3. History of alcohol abuse. 4. Multiple admissions for right lower extremity deep venous thrombosis in the past. 5. History of alcoholic cirrhosis. 6. History of medical noncompliance due to affordability issue. DISCHARGE MEDICATIONS: 1. Spironolactone 25 mg b.i.d. 2. Hydralazine 50 mg t.i.d. 3. Carvedilol 25 mg b.i.d. 4. Apixaban 5 mg b.i.d. 5. Isosorbide dinitrate 10 mg t.i.d. 6. Digoxin 125 mcg daily. 7. Furosemide 60 mg daily. 8. He was already provided samples of Eliquis and for rest of the hearing aid dispenser referral was provided to him to get his medication refilled at the pharmacy across the street. VITALS: At the time of discharge temperature 98.1 degrees, pulse 91 respiratory rate 16, blood pressure 105/77, saturating 97% room air. PHYSICAL EXAMINATION: General: He is not in acute distress. Oral cavity is moist. Air entry bilaterally equal. No wheeze or crackles. S1 normal. No gallop. Abdomen: Soft, nontender. No lower extremity edema. He does not have jugular venous distention. Neurologic: He is alert and oriented x3. LABORATORY DATA: At the time of discharge, WBC 4000, hemoglobin 9.5, platelets 152,000. Sodium 135, chloride 94, BUN 49, creatinine 2, his proBNP improved from 6000 on admission to 2900 at the time of discharge. No microbiological data. IMAGING: During hospital admission, chest x-ray on July 21 had cardiomegaly without any congestive heart failure. Chest x-ray on July 25 had cardiomegaly without any acute pathology Electrocardiogram on July 22 had atrial fibrillation, incomplete right bundle branch block and right ventricular hypertrophy. Electrocardiogram on July 27 had atrial fibrillation with premature ventricular complexes and right axis deviation. HOSPITAL COURSE SUMMARY: Mr. Acharya is a 54-year-old man with history of recurrent right lower extremity DVT, chronic systolic and diastolic congestive heart failure with ejection fraction of 20%, medical noncompliance due to affordability issue, who has been abstinent from alcohol since February 2019, who had seen Dr. Hamm in his office for worsening lower extremity pain and swelling. He was found to have significant edema bilateral lower extremity as well as ascites. He also was supposed to be on Coumadin for his right lower extremity DVT and was supposed to see the maintenance department manager to get his PT/INR checked. However, he ran out of his Coumadin for 5 to 6 days prior to current presentation and his PT, INR were not therapeutic, so the maintenance department manager sent him to the emergency room for fluid volume overload and management of his increasingly painful and swollen right lower extremity. In the emergency room, he was found to have temperature of 97.7 degrees, pulse of 86, respiratory rate of 16, blood pressure of 127/93, and he was saturating 99% on room air. Extremity venous study earlier in June 2019 had deep venous thromboses of the right popliteal and posterior tibial veins, so he was started on full dose of Eliquis and intravenous diuresis. Cardiology was involved in his care and his cardiovascular regimen was modified. He also developed an episode of atrial fibrillation for which he was started on digoxin. At the time of discharge he has been diuresed adequately on current cardiovascular regimen and he has been provided referral for hearing aid dispenser to get his medications free of cost. Cardiology team also provided him Eliquis sample and he is ready to be discharged. He was extensively counseled about medication compliance. Twenty-five minutes were spent in discharging this patient. cc: Iftikhar Aguilar MD
[2019-08-02] MEDS ORDERED: LASIX PO SCH (09:00)
== END 2019-08-01 15:05 | disposition home or self-care (01) | DRG 291 ==
LOC: ED 12:23 → SUATTDRO 17:31 → 3N 17:31
PROVIDERS: ATTEND Internal Medicine